=== PATIENT | female | born 1980 | race Caucasian/White ===

== ENCOUNTER 2020-10-26 18:22 | Emergency (ER) | payer BC, SELFPAY ==
[2020-10-26 18:25] VITALS: BP 186/95; PULSE 74; RESP 16; TEMP 36.4; O2SAT 98; BMI 50.5
--- NOTE | 2020-10-26 18:50 | CT_ITS ---
STUDY: CT ABDOMEN AND PELVIS WITHOUT CONTRAST REASON FOR EXAM: Female, 40 years old. RIGHT LOWER ABD PAIN RADIATING INTO FLANK TODAY RADIATION DOSAGE (If Supplied By Facility): CTDIvol = ( 33.92 ) mGy, DLP = ( 1737.49 ) mGycm TECHNIQUE: Transaxial images were obtained from the dome of the diaphragm to the symphysis pubis without oral contrast, and without intravenous contrast. Sagittal and coronal images were reconstructed. Individualized dose optimization techniques were used for this CT. COMPARISON: None. FINDINGS: The visualized lung bases are unremarkable. The visualized portions of the heart are within normal limits. Normal liver. There are surgical clips in the gallbladder fossa consistent with a prior cholecystectomy. Normal spleen. Normal pancreas. Normal bilateral adrenal glands. Normal right kidney. Normal left kidney. Normal visualized stomach. Normal small intestine. Normal colon. The appendix is visualized and appears normal. Normal abdominal aorta. Normal inferior vena cava. Normal retroperitoneum. Normal urinary bladder. Enlarged uterus with multiple myometrial masses consistent with fibroids. 2 easily identified fibroids measure 3 cm posterior left uterus and 3.3 cm anterior left uterus. Negative for other adnexal mass or free fluid of the pelvis. Normal abdominal wall. Normal osseous structures. CT/Abdomen/Pelvis without Cont IMPRESSION: Normal size of the kidneys bilaterally without hydronephrosis, renal, ureteral or bladder stones. Unremarkable nondistended urinary bladder. No acute bowel findings. Negative for obstruction, perforation or inflammatory changes. A normal appendix is identified. Unremarkable liver, spleen and pancreas status post cholecystectomy. Multiple uterine fibroids. Negative for other pelvic mass or free fluid of the pelvis. Electronically Signed: Christi Pringle MD at 20:10 EST , Service support ,
--- NOTE | 2020-10-26 18:51 | ED.DCSUM_ITS ---
- ER Visit Summary Date of Service: 10/26/20 Chief Complaint: [Abdominal pain] History of Present Illness: The patient is a 40 F [presents to the emergency department with complaint of abdominal pain that started approximately 3:30 PM. Patient states the pain initially was continuous but now seems to come and go more. Patient rates it a 5 or 6 out of 10. The pain seems to radiate to her back. She denies urinary symptoms. She denies any fever. She denies vomiting. She denies blood in her stool or black tarry stools. Patient is currently on her menstrual period. Patient denies recent illness. Patient states that the pain reminds her of when she had her gallbladder out. Her gallbladder was r esected 13 years ago. Patient does not have history of kidney stones.] Physical Examination: [HEENT-PERRLA, EOMI. Cranial nerves II through XII grossly intact. TMs clear. Mucous membranes moist. No adenopathy. Cardiovascular-regular rate and rhythm without murmur or ectopy Lungs-clear to auscultation, chest wall stable without crepitus or subcu emphysema Abdomen-normoactive bowel sounds, soft. Patient has tenderness palpation over right lower quadrant some guarding. There is no rebound, rigidity, or peritoneal signs. She has some mild CVA tenderness on the right. Extremities-intact ?4, normal range of motion, normal pulses, atraumatic] Test Results: [CBC with differential obtained showed a white of 8.7, hemoglobin 13, hematocrit 39.2, placed 297. Chemistries were unremarkable. LFTs were normal. Urinalysis showed 25-50 RBCs but no WBCs. No signs of infection. hCG was negative. CT flank obtained showed no evidence of kidney stones and showed a normal appendix. Patient was noted to have some fibroids in the uterus.] Emergency Department Course and Treatment: [Patient had an IV line established on arrival. Initially she did not want a thing for pain. The pain did return while in the department and she did receive Toradol 30 mg IV.] On repeat exam prior to receiving Toradol patient has pain in the right lower quadrant and lower pelvis region. Once again there is no rebound, rigidity, or peritoneal signs. Treatment Plan: [Patient will be given a prescription for few [place] for pain. At this point the etiology of her pain is unclear. Her work-up in the department is unremarkable. Patient advised to follow-up with her primary care physician within next 2 to 3 days. She is advised to return to the ER if worsening pain, fever, vomiting, bloody stool, or condition should worsen anyway.] Disposition: Discharged home in stable condition] Impression: [Abdominal pain-etiology uncertain] This note was generated with e[employer] dictation software. It may contain incorrect words, spelling, and punctuation that were not noted in review of the chart prior to signing ED Disposition - Plan for ED Patient: Referrals: [facility] Doctor,Out of [NON-STAFF] -
[2020-10-26 19:07] LABS: Absolute Lymphocyte Count 1.72 X10^3/uL (0.83-4.51); Absolute Neutrophil Count 6.5 X10^3/uL (2.0-7.7); Basophil# 0.03 X10^3/uL; Basophil% 0.3 % (0-1); Eosinophil# 0.03 X10^3/uL; Eosinophils% 0.3 % (0-5); Hematocrit 39.2 % (37-47); Hemoglobin 13.2 g/dL (12.0-15.0); Lymphocyte # 1.72 X10^3/ul (4.0); Lymphocyte % 19.7 % (19-41); Mean Corp Hgb Conc 33.7 g/dL (32-36); Mean Corpuscular Hgb 29.1 pg (27.0-32.0); Mean Corpuscular Volume 86.5 fL (81-99); Mean Platelet Vol. 9.5 fl (6.2-12.0); Monocyte% 4.6 % (0-10); NRBC Flagged by Analyzer 0 % (0-5); Neutrophil # 6.52 X10^3/uL (2.7-7.7); Neutrophil % 74.9 % (47-70); Platelet Count 297 K/mm3 (150-450); RBC Distribution Width CV 12.8 % (11.6-14.6); RBC Distribution Width SD 40.7 fl (35.1-43.9); Red Blood Count 4.53 M/mm3 (4.2-5.4); White Blood Count 8.7 K/mm3 (4.4-11.0)
[2020-10-26 19:19] LABS: Internal QC Validated? YES +Cl - CLEAR BKGD; Pregnancy, Serum, hCG Quali. NEGATIVE Negative
[2020-10-26 19:24] LABS: ALB/GLOB Ratio 0.9 RATIO (0.9-2.4); AST(SGOT) 14 U/L (15-37); Alanine Aminotransfer ALT/SGPT 29 U/L (13-56); Albumin, Serum 3.7 g/dL (3.2-5.0); Alkaline Phosphatase 86 U/L (45-117); Anion Gap 5 (5-15); BUN 11 mg/dL (7-18); BUN/Creat Ratio 14.7 RATIO (10-20); Calcium,Total 8.6 mg/dL (8.5-10.1); Chloride 108 mmol/L (98-107); Creatinine, Serum 0.75 mg/dL (0.55-1.02); EST Glomerular Filtration Rate 92 mL/min (>60); Est Glom Filt Rate - Afr Amer 111 mL/min (>60); Estimated Creatinine Clearance 87.82 ml/min; Globulin 3.9 g/dL (2.2-4.2); Glucose 103 mg/dL (74-106); Potassium 3.8 mmol/L (3.5-5.1); Protein, Total 7.6 g/dL (6.4-8.2); Sodium Level 139 mmol/L (136-145)
[2020-10-26] MEDS: 0.9% Normal Saline 1,000 ML 125 ML IV (19:50)
[2020-10-26 19:52] LABS: Mucous, Urine 0 SEEN /hpf (<or=2+); White Blood Cells 0 SEEN /hpf (0-5)
[2020-10-26 20:01] LABS: Color, Urine Yellow (Yellow); Glucose, Dipstick Normal (Normal); Ketone-Dipstick Negative (Negative); Leukocyte Esterase-Dipstick 25 /ul (Negative); Nitrite-Dipstick Negative (Negative); Occult Blood-Urine 250 /ul (Negative); Protein-Dipstick Negative (Negative); Urine Bilirubin Dipstick Negative (Negative); Urine Clarity Clear (Clear); Urine Urobilinogen Normal (Normal)
[2020-10-26 20:08] LABS: Bacteria 1+ /hpf (None Seen); Red Blood Cells-Urine 25-50 SEEN /hpf (0-5); Squamous Epithelial Cells - UA 0-5 SEEN /hpf (5-10)
--- NOTE | 2020-10-26 20:26 | ED.DEP ---
ED Disposition - Plan for ED Patient: Instructions: ED Abdominal Pain Unkn Cause Fem Prescriptions: Hydrocodone Bitart/Apap 5-325 [[place] 5MG-325MG] 1 tab PO Q4H PRN PRN 2 Days #10 tab PRN Reason: Pain Prescription Printed Referrals: [facility],Out of [NON-STAFF] - 1-2 Days if not improving
[2020-10-26] MEDS: Ketorolac 30 MG/ML Syringe IV (20:31)
[2020-10-26 20:53] VITALS: BP 159/86; PULSE 67; RESP 18; O2SAT 97
[2020-10-26] MEDS: HYDROcodone Bitartrate/Apap 5/325 Tablet PO (20:53)
== END 2020-10-26 21:01 | disposition home or self-care (01) ==
LOC: ED 19:14
PROVIDERS: Emergency Provider Emergency Medicine
DX: R10.31 Right lower quadrant pain (principal); Z90.49 Acquired absence of other specified parts of digestive tract
CPT/HCPCS: 74176; 80053; 81001; 84703; 85025; 96361; 96374; 99284; J7030; A4216

== ENCOUNTER → 2024-05-16 | Outpatient (CLI) | payer OTHER, SELFPAY ==
--- NOTE | 2024-05-16 12:47 | BI_ITS ---
MAMMOGRAPHY - BILATERAL SCREENING REASON FOR EXAM: Female, 44 years old. Routine annual screening examination. PERTINENT HISTORY: Non-contributory. TECHNIQUE: Digital bilateral breast lilli (3D mammographic acquisition) in the CC and MLO projections. 2-D mediolateral oblique (MLO) and craniocaudad (CC) views of both breasts were obtained. CAD: Full Field Digital Mammography with Computer Added Detection was performed. COMPARISON: Comparison is made with prior outside examination dated April 24, 2023. FINDINGS: Breast Composition: The breasts are almost entirely fatty. There are no dominant masses or suspicious calcifications. No other significant abnormalities are identified. There has been no significant change since the prior study. BI/SCRN MAMM (CAD)W/LILLI BILAT IMPRESSION: Stable bilateral screening mammogram. Yearly follow-up mammogram recommended. (A) ASSESSMENT CATEGORY: BIRADS Category 1: Negative. A letter regarding these results will be sent to the patient by the facility within 30 days. Approximately 10% of breast cancers are not detected by mammography. A normal mammogram should not delay biopsy of a clinically suspicious abnormality. [id number] Electronically Signed: Guicho Szymanski MD at 14:51 EDT ,
== END | disposition home or self-care (01) ==
LOC: OPBI 12:45
PROVIDERS: Referring Provider Registered Nurse; Visit Provider Registered Nurse
DX: Z12.31 Encounter for screening mammogram for malignant neoplasm of breast (principal)
CPT/HCPCS: 77063; 77067

== ENCOUNTER → 2024-09-21 | Outpatient (CLI) | payer OTHER, SELFPAY ==
[2024-09-21 09:35] LABS: Hematocrit 37.3 % (37-47); Hemoglobin 12.7 g/dL (12.0-15.0); Mean Corpuscular Hgb 29.5 pg (27.0-32.0); Mean Corpuscular Volume 86.5 fL (81-99); Mean Platelet Vol. 9.9 fl (6.2-12.0); Platelet Count 295 K/mm3 (150-450); RBC Distribution Width CV 13.2 % (11.6-14.6); RBC Distribution Width SD 41.2 fl (35.1-43.9); Red Blood Count 4.31 M/mm3 (4.2-5.4); White Blood Count 6.6 K/mm3 (4.4-11.0)
[2024-09-21 10:37] LABS: ALB/GLOB Ratio 1.1 RATIO (0.9-2.4); AST(SGOT) 15 U/L (15-37); Alanine Aminotransfer ALT/SGPT 22 U/L (13-56); Albumin, Serum 3.6 g/dL (3.2-5.0); Alkaline Phosphatase 53 U/L (45-117); Anion Gap 4 (5-15); BUN 16 mg/dL (7-18); BUN/Creat Ratio 28.5 RATIO (10-20); Calcium,Total 8.7 mg/dL (8.5-10.1); Chloride 106 mmol/L (98-107); Cholesterol 191 mg/dL (200); Creatinine, Serum 0.56 mg/dL (0.55-1.02); EST Glomerular Filtration Rate 125 mL/min (>60); Est Glom Filt Rate - Afr Amer 152 mL/min (>60); Globulin 3.4 g/dL (2.2-4.2); Glucose 93 mg/dL (74-106); High Density Lipoprotein 52 mg/dL; Potassium 3.8 mmol/L (3.5-5.1); Sodium Level 138 mmol/L (136-145); Triglycerides 126 mg/dL; Very Low Density Lipoprotein 25 mg/dL (5-40)
== END | disposition home or self-care (01) ==
LOC: LAB 09:00
PROVIDERS: Referring Provider Registered Nurse; Visit Provider Registered Nurse
DX: Z00.00 Encounter for general adult medical examination without abnormal findings (principal); E78.2 Mixed hyperlipidemia; E55.9 Vitamin D deficiency, unspecified; D64.9 Anemia, unspecified
CPT/HCPCS: 36415; 80053; 80061; 82306; 85027

== ENCOUNTER → 2024-10-17 | Outpatient (CLI) | payer OTHER, SELFPAY ==
--- NOTE | 2024-10-17 08:48 | ECHOCS_ITS ---
Version 2 Reason For Study: MURMUR Procedure This was a 2D Doppler, Color Flow transthoracic echocardiogram. The study was technically difficult. Contrast injection was performed. Exam performed in department. Left Ventricle Normal left ventricle. Moderate concentric left ventricular hypertrophy. Left ventricular systolic function is normal. The left ventricular ejection fraction is 60 %. No regional wall motion abnormalities noted. Right Ventricle Normal RV size. Normal systolic function. Atria Normal left atrium. Normal right atrium. Mitral Valve Normal mitral valve. Tricuspid Valve Normal tricuspid valve. Aortic Valve Trisinus/trileaflet aortic valve. Pulmonic Valve Normal pulmonic valve. Great Vessels Normal aortic root. The pulmonary artery is normal size. Normal inferior vena cava. Pericardium/Pleural No pericardial effusion. Medication 22 gauge I.V. with prn adaptor inserted into right arm. Diluted definity 3ml given slow IV push to enhance endocardial definition. MMode/2D Measurements & Calculations LVIDd: 4.3 cm IVSd: 1.4 cm LVOT diam: 2.0 cm LVIDs: 2.7 cm LVPWd: 1.5 cm FS: 36.5 % LVOT area: 3.1 cm2 Ao root diam: 3.3 cm LAV(MOD-bp): 56.3 ml LVAd ap4: 37.4 cm2 LAV(MOD-bp) Indexed: 24.2 ml/m2 LVLd ap4: 8.5 cm LAV(MOD-sp2): 49.2 ml EDV(MOD-sp4): 135.5 ml LAV(MOD-sp4): 52.3 ml EDV(sp4-el): 140.2 ml LVAs ap4: 19.9 cm2 LVLs ap4: 7.3 cm ESV(MOD-sp4): 44.8 ml ESV(sp4-el): 46.4 ml EF(MOD-sp4): 66.9 % EF(sp4-el): 66.9 % SV(MOD-sp4): 90.6 ml SV(sp4-el): 93.8 ml LA A4 area: 18.5 cm2 SI(MOD-sp4): 39.0 ml/m2 LA dimension(2D): 4.1 cm RA A4 area: 15.5 cm2 Time Measurements MV dec time: 0.20 sec Doppler Measurements & Calculations MV E max cristofer: 107.3 cm/sec Lat Peak E' Cristofer: 12.6 cm/sec Med Peak E' Cristofer: 11.2 cm/sec MV A max cristofer: 72.1 cm/sec E/E' lat: 8.5 E/E' med: 9.6 MV E/A: 1.5 MV V2 max: 113.2 cm/sec MV dec slope: 545.5 cm/sec2 Ao V2 max: 169.1 cm/sec MV max P.1 mmHg Ao max P.4 mmHg MV V2 mean: 60.4 cm/sec Ao V2 mean: 111.4 cm/sec MV mean P.8 mmHg Ao mean P.9 mmHg MV V2 VTI: 33.6 cm Ao V2 VTI: 35.3 cm MVA(VTI): 3.1 cm2 AV (velocity ratio): 0.95 TORITO(I,D): 2.9 cm2 TORITO(V,D): 2.4 cm2 LV V1 max: 135.4 cm/sec SV(LVOT): 102.4 ml PA V2 max: 113.9 cm/sec LV V1 max P.3 mmHg PA V2 mean: 72.9 cm/sec LV V1 mean P.5 mmHg LV V1 mean: 100.8 cm/sec LV V1 VTI: 33.5 cm ECHO/Echo Complete W/ Contrast Interpretation Summary Normal left ventricle. Left ventricular systolic function is normal. The left ventricular ejection fraction is 60 %. Moderate concentric left ventricular hypertrophy. Structurally normal valves. Contrast injection was performed. Ordering Physician: Marli Rojo Referring Physician: Marli Rojo Performed By: Celia Keane RCS
--- NOTE | 2024-10-17 08:49 | CDU_ITS ---
Reason For Study: Left carotid bruit Rt. Velocities/BP Lt. Velocities/BP Prox CCA 93.8/12.4 cm/sec. Prox CCA 110.9/16.3 cm/sec. Mid CCA 125.6/17.6 cm/sec. Mid CCA 97.4/21.2 cm/sec. Dist CCA 87.6/18.8 cm/sec. Dist CCA 71.6/18.8 cm/sec. Prox ICA 70.4/20 cm/sec. Prox ICA 54.4/12.6 cm/sec. Mid ICA 54.4/20 cm/sec. Mid ICA 64.2/22.5 cm/sec. Dist ICA 77.7/27.4 cm/sec. Dist ICA 72.9/26.2 cm/sec. Rt. ICA/CCA = 0.62. Lt. ICA/CCA = 0.75. Prox ECA 96.1/11.4 cm/sec. Prox ECA 94.9/13.9 cm/sec. Rt. Vert. 67.9/17.6 cm/sec. Lt. Vert. 45.4/6.9 cm/sec. Right Extracranial There is intimal thickening but no significant atherosclerotic plaque noted in the right common carotid artery. There is intimal thickening but no significant atherosclerotic plaque noted in the right internal carotid artery. There is intimal thickening but no significant atherosclerotic plaque noted in the right external carotid artery. Antegrade flow is noted in the right vertebral artery. Left Extracranial There is intimal thickening but no significant atherosclerotic plaque noted in the left common carotid artery. There is intimal thickening but no significant atherosclerotic plaque noted in the left internal carotid artery. There is intimal thickening but no significant atherosclerotic plaque noted in the left external carotid artery. Antegrade flow is noted in the left vertebral artery. Procedure Carotid Duplex [id number]. This is a Carotid Duplex examination using B-mode, color flow and specral Doppler. Exam performed in department. VL/Carotid Duplex Ultrasound Interpretation Summary Normal right extracranial internal carotid. Normal left extracranial internal carotid. Patent and antegrade vertebrals bilaterally. Ordering Physician: Marli Rojo Referring Physician: Marli Rojo Performed By: Sara Prince RVT
== END | disposition home or self-care (01) ==
LOC: CVS 08:47
PROVIDERS: PCP Registered Nurse; Referring Provider Registered Nurse; Visit Provider Registered Nurse
DX: R09.89 Other specified symptoms and signs involving the circulatory and respiratory systems (principal); R01.1 Cardiac murmur, unspecified
CPT/HCPCS: 93306; 93880; Q9957; A4216; C8929

== ENCOUNTER → 2025-05-17 | Outpatient (CLI) | payer OTHER, SELFPAY ==
--- NOTE | 2025-05-17 12:00 | BI_ITS ---
EXAM: SCRN MAMM (CAD)W/LILLI BILAT DATE: 05/17/2025 CLINICAL HISTORY: F, Age 45 y/o , SCREENING TECHNIQUE: SCRN MAMM (CAD)W/LILLI BILAT COMPARISON: Prior exam(s) dated 05/16/2024. FINDINGS: TISSUE DENSITY: There are scattered areas of fibroglandular density. Bilateral Breast Mammographic Findings: No significant masses, calcifications or other abnormalities are identified. BI/SCRN MAMM (CAD)W/LILLI BILAT IMPRESSION: There is no mammographic evidence of malignancy. OVERALL FINAL ASSESSMENT BI-RADS 1: NEGATIVE. RECOMMENDATION: Routine annual follow-up in 1 Year A letter with findings and recommendations will be mailed to the patient. Reading Location: [id number]
--- NOTE | 2025-05-17 12:00 | BI_ITS ---
EXAM: SCRN MAMM (CAD)W/LILLI BILAT DATE: 05/17/2025 CLINICAL HISTORY: F, Age 45 y/o , SCREENING TECHNIQUE: SCRN MAMM (CAD)W/LILLI BILAT COMPARISON: Prior exam(s) dated 05/16/2024. FINDINGS: TISSUE DENSITY: There are scattered areas of fibroglandular density. Bilateral Breast Mammographic Findings: No significant masses, calcifications or other abnormalities are identified. BI/SCRN MAMM (CAD)W/LILLI BILAT IMPRESSION: There is no mammographic evidence of malignancy. OVERALL FINAL ASSESSMENT BI-RADS 1: NEGATIVE. RECOMMENDATION: Routine annual follow-up in 1 Year A letter with findings and recommendations will be mailed to the patient. Reading Location: [id number]
== END | disposition home or self-care (01) ==
LOC: OPBI 11:58
PROVIDERS: PCP Registered Nurse; Referring Provider Obstetrics & Gynecology; Visit Provider Obstetrics & Gynecology
DX: Z12.31 Encounter for screening mammogram for malignant neoplasm of breast (principal)
CPT/HCPCS: 77063; 77067

== ENCOUNTER → 2025-07-19 | Outpatient (CLI) | payer OTHER, SELFPAY ==
[2025-07-19 11:14] LABS: Hematocrit 38.2 % (37-47); Hemoglobin 13.1 g/dL (12.0-15.0); Mean Corp Hgb Conc 34.3 g/dL (32-36); Mean Corpuscular Volume 85.8 fL (81-99); Mean Platelet Vol. 10.0 fl (6.2-12.0); Platelet Count 303 K/mm3 (150-450); RBC Distribution Width CV 13.0 % (11.6-14.6); RBC Distribution Width SD 40.4 fl (35.1-43.9); Red Blood Count 4.45 M/mm3 (4.2-5.4); White Blood Count 5.6 K/mm3 (4.4-11.0)
[2025-07-19 11:56] LABS: AST(SGOT) 22 U/L (<=31); Alanine Aminotransfer ALT/SGPT 19 U/L (<=34); Albumin, Serum 4.3 g/dL (3.5-5.0); Alkaline Phosphatase 54 U/L (35-104); Anion Gap 11 (5-15); BUN 13 mg/dL (4-19); BUN/Creat Ratio 24.3 RATIO (10-20); Calcium,Total 9.0 mg/dL (7.6-11.0); Carbon Dioxide 22.9 mmol/L (21.0-32.0); Chloride 105 mmol/L (98-108); Cholesterol 212 mg/dL (<=200); Globulin 3.1 g/dL (2.2-4.2); Glucose 92 mg/dL (70-99); Low Density Lipoprotein Calc. 143 mg/dL; Potassium 3.8 mmol/L (3.3-5.1); Triglycerides 94 mg/dL; Very Low Density Lipoprotein 19 mg/dL (5-40); Vitamin D,25 Hydroxy 43.0 ng/mL (30-100); cholesterol:hdl ratio screen 4.27
--- OUTSIDE RECORDS SUMMARY | 2025-07-19 13:48 | XMS RPT_ITS | CCD ---
Author Organization [facility] CliniSyms Care Team Providers Care Voip Network Engineer Name Role Phone JEFF PRETTYN-LEADLIGHTER, SOWMYA Primary Care Physician REYMUNDO RUSSO Referring Unavailable JEFF SWANN-LEADLIGHTER, SOWMYA Attending Varshavakristi AGUILAR APRN-LEADLIGHTER, SOWMYA Primary Care Antonia AGUILAR APRN-LEADLIGHTER, SOWMYA Attending Antonia AGUILAR APRN-LEADLIGHTER, SOWMYA Primary Care Unavai pat AGUILAR 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, SOWMYA Attending Antonia AGUILAR APRN-LEADLIGHTER, SOWMYA Primary Care Antonia AGUILAR APRN-LEADLIGHTER, SOWMYA Attending Varshavakristi PINO APRN-STUART, MARLI Londono Primary Care Un available Unavailable Primary Care Provider Keily Pino NP-C, Marli Primary Care Provider [phone] Rebecca STAUFFER, Dr. Girish Uribe Attending Provider [phone] Dr. Girish Fernandez MD Referring Provider Alia BIT TAPPER, Marli Referring Unavailabl e Care Physician, No Primary Primary Care Unava ilable Alia BIT TAPPER, Marli Attending Unavailzoraida e Alia BIT TAPPER, [place] Primary Care Unavailabl e Alia VELIZ, Marli Attending Unavailzoraida e Alia VELIZ, [place] Primary Care Unavailabl Richard Asencio Attending Unavailable Alia VELIZ, Marli Referring Unavailzoraida e Alia BIT TAPPER, Marli Primary Care UnavailDiego Neff Attending Unavailable Alia BIT TAPPER, Marli Referring Unavailzoraida e Alia BIT TAPPER, [place] Primary Care Unavailzoraida e Alia BIT TAPPER, Marli Attending Marli Donovan NP Primary Care Girish Phillips Attending Unavailable Girish Fernandez Referring Unavailable Allergies Allergy Classification Reported Allergen(s) Allergy Type Date of Onset Reaction(s) Facility (11 sources) seasonal enviromental Allergy to substance Sneezing (finding) [facility] NEGATED: Highlighted row has been ruled out! (1 source) Drug allergy [facility] NEGATED: Highlighted row has been ruled out! (1 source) Drug allergy [facility] NEGATED: Highlighted row has been ruled out! (1 source) Drug allergy [facility] NEGATED: Highlighted row has been ruled out! (1 source) Drug allergy [facility] NEGATED: Highlighted row has been ruled out! (1 source) Drug allergy [facility] NEGATED: Highlighted row has been ruled out! (1 source) Drug allergy [facility] Medications Current Medications Medication Drug Class(es) Dates Sig (Normalized) Sig (Original) [id number] 200 actuat albuterol 0.09 mg/actuat metered dose inhaler (1 source) beta2-Adrenergic Agonist Start: 10-22-2023 take 2 puff(s) by inhalation every six hours as needed albuterol HFA (PROAIR HFA) 90 mcg/actuation inhaler Inhale 2 Puffs as instructed every 6 hours as needed. 1 Each 10/22/2023 Active benzonatate 100 mg oral capsule (1 source) Non-narcotic Antitussive Start: 10-22-2023 take 2 capsules by mouth every eight hours as needed benzonatate (TESSALON PERLES) 100 mg capsule Take 2 capsules by mouth three times a day as needed. 30 capsule 10/22/2023 Active cetirizine hydrochloride 10 mg oral tablet (12 sources) Histamine-1 Receptor Antagonist Start: 04-04-2022 End: 06-10-2023 cetirizine 10 mg oral tablet Dose : 10 mg = 1 tab(s), Oral, qDay, # 90 tab(s), 1 Refill(s), Pharmacy: [facility], 163.5, cm, 12/12/22 9:32:00 EST, Height, kg, 12/12/22 9:32:00 EST, Dosing Weight Start Date: 12/12/22 Stop Date: 06/10/23 Status: Ordered Start: 03-29-2021 End: 03-24-2022 cetirizine 10 mg oral tablet Dose : 10 mg = 1 tab(s), Oral, qDay, # 30 tab(s), 0 Refill(s) Start Date: 12/26/21 Status: Ordered cholecalciferol 0.125 mg oral tablet (1 source) Vitamin D Start: 01-14-2022 cholecalcifero l (VITAMIN D-3) 5,000 unit tab 5,000 Units. 01/14/2022 Active citalopram 40 mg oral tablet (7 sources) Serotonin Reuptake Inhibitor Start: 04-11-2022 End: 07-06-2023 citalopram 40 mg oral tablet Dose : 40 mg = 1 tab(s), Oral, qDay, # 90 tab(s), 1 Refill(s), Pharmacy: [facility], 163.5, cm, 12/12/22 9:32:00 EST, Height, kg, 12/12/22 9:32:00 EST, Dosing Weight Start Date: 12/12/22 Stop Date: 06/10/23 Status: Ordered take 2 tablets by mouth once cruz ly citalopram hydrobromide (CELEXA) 10 mg tablet Take 20 mg by mouth once daily. Active estradiol 2 mg oral tablet (3 sources) Estrogen Start: 01-13-2022 End: 01-27-2022 estradiol 2 mg oral tablet Dose : 2 mg = 1 tab(s), Oral, BID, # 14 tab(s), 1 Refill(s), Pharmacy: [facility], 165.2, cm, 12/26/21 10:11:00 EST, Height, kg, 12/26/21 10:11:00 EST, Dosing Weight Start Date: 01/13/22 Stop Date: 01/27/22 Status: Ordered Start: 09-05-2021 End: 09-26-2021 estradiol 1 mg oral tablet D ose : 1 mg = 1 tab(s), Oral, qDay, Take two tabs daily for 7 days then one tab daily for 7 days, # 21 tab(s), 0 Refill(s), Pharmacy: [facility], 162.56, cm, 07/08/21 14:11:00 EDT, Height, kg, 08/29/21 9:50:00 EDT, Dosing Weight Start Date: 09/05/21 Stop Date: 09/26/21 Status: Ordered fenofibrate 145 mg oral tablet (4 sources) Peroxisome Proliferator Receptor alpha Agonist Start: 07-11-2022 End: 06-10-2023 fenofibrate 145 mg oral tablet Dose : 145 mg = 1 tab(s), Oral, qDay, # 90 tab(s), 1 Refill(s), Pharmacy: [facility], 163.5, cm, 12/12/22 9:32:00 EST, Height, kg, 12/12/22 9:32:00 EST, Dosing Weight Start Date: 12/12/22 Stop Date: 06/10/23 Status: Ordered Fenofibrate 120 mg tab Take 145 mg by mouth once daily. Active fluticasone propionate 0.05 mg/actuat metered dose nasal spray (1 source) Corticosteroid Start: 02-08-2021 take 2 spray(s) by mouth once daily fluticasone (FLONASE) 50 mcg/actuation nasal spray Indications: Sinus pressure Use 2 Sprays in each nostril once daily. Rinse mouth after use. 1 Bottle 02/08/2021 Active ibuprofen 200 mg oral tablet (5 sources) Nonsteroidal Anti-inflammatory Drug Start: 02-08-2021 ibuprofen 200 mg oral tablet Dose : 400 mg = 2 tab(s), Oral, q6hr, PRN pain or fever, 0 Refill(s) Start Date: 02/08/21 Status: Ordered rosuvastatin calcium 20 mg oral tablet (12 sources) HMG-CoA Reductase Inhibitor Start: 09-06-2021 End: 06-10-2023 rosuvastatin 20 mg oral tablet Dose : 20 mg = 1 tab(s), Oral, qDay, # 90 tab(s), 1 Refill(s), Pharmacy: [facility], 163.5, cm, 12/12/22 9:32:00 EST, Height, kg, 12/12/22 9:32:00 EST, Dosing Weight Start Date: 12/12/22 Stop Date: 06/10/23 Status: Ordered take 2 tablets by mouth once cruz ly rosuvastatin (CRESTOR) 10 mg tablet Take 20 mg by mouth once daily. Active Vitamin D3 (7 sources) Start: 01-14-2022 take 1 dose by mouth once daily Vitamin D3 Dose : 5,000 unit(s) =, Oral, Daily, 0 Refill(s) Start Date: 01/14/22 Status: Ordered Start: 01-14-2022 Vitamin D3 Dos e : 2,000 unit(s) = 1 tab(s), Oral, Daily, 0 Refill(s) Start Date: 01/14/22 Status: Ordered Completed/Discontinued Medications Medication Drug Class(es) Dates Sig (Normalized) Sig (Original) acetaminophen 325 mg / HYDROcodone bitartrate 5 mg oral tablet (1 source) Opioid Agonist Start: 10-26-2020 End: 10-28-2020 Hydrocodone-Acetami nophen 1 TABLET tablet Discontinued 1 {tbl} PO EVERY 4 HOURS NEEDED as needed for Pain 10 2 0 October 26, 2020 October 27, 2020 1:00am October 28, 2020 1:02am Abdominal pain Unspecified abdominal pain Problems Active Problems Problem Classification Problem Date Documented Da te Episodic/Chronic Anxiety disorders (6 sources) Generalized anxiety disorder 2022 Chronic Chronic obstructive pulmonary disease and bronchiectasis (2 sources) Bronchitis, not specified as acute or chronic; Translations: [Bronchitis] Onset: 10-22-2023 10-22-2023 Episodic Deficiency and other anemia (6 sources) Anemia 04-05-2022 Episodic Deficiency and other anemia (1 source) Anemia, unspecified; Translations: [Anemia, unspecified] Onset: 07-13-2025 Episodic Disorders of lipid metabolism (13 sources) Hyperlipidemia; Translations: [Mixed hyperlipidemia] Onset: 07-13-2025 06-09-2021 Chronic Nonmalignant breast conditions (11 sources) Breast lump 02-08-2021 Episodic Comment on above: Right-benign Nutritional deficiencies (7 sources) Vitamin D deficiency; Translations: [Vitamin D deficiency, unspecified] Onset: 07-13-2025 04-05-2022 Chronic Other female genital disorders (11 sources) Abnormal uterine bleeding 07-04-2021 Chronic Other nutritional; endocrine; and metabolic disorders (11 sources) Body mass index 40+ - severely obese 06-09-2021 Chronic Other nutritional; endocrine; and metabolic disorders (11 sources) Obesity 06-09-2021 Chronic Other screening for suspected conditions (not mental disorders or infectious disease) (2 sources) Encounter for screening for diabetes mellitus; Translations: [Encounter for screening mammogram for malignant neoplasm of breast] Onset: 05-22-2025 Episodic Other upper respiratory disease (6 sources) Seasonal allergy 04-05-2022 Chronic Residual codes; unclassified (11 sources) History of laparoscopy 07-08-2021 Episodic Residual codes; unclassified (2 sources) Screening - NAD 12-12-2022 Episodic Unclassified (6 sources) History of vaginal hysterectomy 01-16-2022 Unclassified (6 sources) Never smoked tobacco 2022 Unclassified (9 sources) Patient encounter status 2022 Unclassified (2 sources) History of clinical finding in subject 12-12-2022 Past or Other Problems Problem Classification Problem Date Documented Da te Episodic/Chronic Biliary tract disease (1 source) Acute cholecystitis; Translations: [Acute cholecystitis] Onset: 02-03-2006 Resolved: 10-17-2008 10-17-2008 Episodic Hypertension complicating ; childbirth and the puerperium (1 source) Transient hypertension of ; Translations: [Gestational [-induced] hypertension without significant proteinuria, unspecified trimester] Onset: 12-04-2008 Resolved: 06-13-2009 06-13-2009 Episodic Other circulatory disease (1 source) Other specified symptoms and signs involving the circulatory and respiratory systems; Translations: [Other specified symptoms and signs involving the circulatory and respiratory systems] Onset: 11-15-2024 Episodic Other and delivery including normal (1 source) Normal in primigravida; Translations: [Encounter for supervision of normal first , unspecified trimester] Onset: 09-19-2008 Resolved: 02-01-2009 02-01-2009 Episodic Ovarian cyst (12 sources) Cyst of ovary; Translations: [Unspecified ovarian cyst, unspecified side] Onset: 12-04-2008 Resolved: 06-13-2009 07-04-2021 Episodic Results Test Name Value Interpretation Reference Range Facility Breast imaging reportOrdered By: Shi Lundy on 05-17-2025 Study report [facility] Imaging Services [address] [place] [address] SCRN MAMM (CAD)W/MIGUEL BILAT MR#: [id number] Acct: [id number] Name: RUBA BUSTAMANTE Rep #: [id number] : 1980 F 45 From: Juliette Lundy MD PCP: LUCIA UrbinaC Status: RE G CLI Study:SCRN MAMM (CAD)W/MIGUEL BILAT Date of Exa m: 05/17/25 Exam# [id number] Ordering Dr: Rodri Fernandez MD EXAM: SCRN MAMM (CAD)W/MIGUEL BILAT DATE: 05/17/2025 CLINICAL HISTORY: F, Age 45 y/o , SCREENING TECHNIQUE: SCRN MAMM (CAD)W/MIGUEL BILAT COMPARISON: Prior exam(s) dated 05/16/2024. FINDINGS: TISSUE DENSITY: There are scattered areas of fibroglandular density. Bilateral Breast Mammographic Findings: No significant masses, calcifications or other abnormalities are identified. BI/SCRN MAMM (CAD)W/MIGUEL BILAT IMPRESSION: There is no mammographic evidence of malignancy. OVERALL FINAL ASSESSMENT BI-RADS 1: NEGATIVE. RECOMMENDATION: Routine annual follow-up in 1 Year A letter with findings and recommendations will be mailed to the patient. Reading Location: [facility] CC: BIT TAPPERNitoC Marli Pino; Dr. Girish Fernandez MD ~ Molasses Coloring Operator: Signed [facility] SCRN MAMM (CAD)W/MIGUEL BILATo n 05-17-2025 SCRN MAMM (CAD)W/MIGUEL BILAT [facility] Imaging Services [address] [place] [id number] SCRN MAMM (CAD)W/MIGUEL BILAT MR#: [id number] Acct: [id number] Name: RUBA BUSTAMANTE Rep #: [id number] : 1980 F 45 From: Shi Lundy MD PCP: MANUEL Urbina Status: REG CLI Study: SCRN MAMM (CAD)W/MIGUEL BILAT Date of Exam: 05/02 04/26 Exam# [id number] Ordering Dr: Girish Fernandez MD EXAM: SCRN MAMM (CAD)W/MIGUEL BILAT DATE: 05/17/2025 CLINICAL HISTORY: F, Age 45 y/o , SCREENING TECHNIQUE: SCRN MAMM (CAD)W/MIGUEL BILAT COMPARISON: Prior exam(s) dated 05/16/2024. FINDINGS: TISSUE DENSITY: There are scattered areas of fibroglandular density. Bilateral Breast Mammographic Findings: No significant masses, calcifications or other abnormalities are identified. BI/SCRN MAMM (CAD)W/MIGUEL BILAT IMPRESSION: There is no mammographic evidence of malignancy. OVERALL FINAL ASSESSMENT BI-RADS 1: NEGATIVE. RECOMMENDATION: Routine annual follow-up in 1 Year A letter with findings and recommendations will be mailed to the patient. Reading Location: [facility] CC: BIT TAPPER-Mikael Pino; Dr. Girish Fernandez MD Molasses Coloring Operator: Signed Normal [facility] Carotid Duplex Ultrasoundon 10-17-2024 Carotid Duplex Ultrasound [facility] Cardiovascular Services [address] [place] [address] Carotid Duplex Ultrasound 10/17/24 0850 MR#: [id number] Acct: [id number] Name: RUBA BUSTAMANTE Rep #: [id number] : 1980 44 From: Diego Gleason MD Attending Dr: Marli Pino NP-C Status: R EG CLI Ordering Dr: Marli Pino NP BIT TAPPERJalyn Date: 10/17 Location: [facility] Sex: F C Admitted: Reason For Study: Left carotid bruit Rt. Velocities/BP Lt. Velocities/BP Prox CCA 93.8/12.4 cm/sec. Prox CCA 110.9/16.3 cm/sec. Mid CCA 125.6/17.6 cm/sec. Mid CCA 97.4/21.2 cm/sec. Dist CCA 87.6/18.8 cm/sec. Dist CCA 71.6/18.8 cm/sec. Prox ICA 70.4/20 cm/sec. Prox ICA 54.4/12.6 cm/sec. Mid ICA 54.4/20 cm/sec. Mid ICA 64.2/22.5 cm/sec. Dist ICA 77.7/27.4 cm/sec. Dist ICA 72.9/26.2 cm/sec. Rt. ICA/CCA = 0.62. Lt. ICA/CCA = 0.75. Prox ECA 96.1/11.4 cm/sec. Prox ECA 94.9/13.9 cm/sec. Rt. Vert. 67.9/17.6 cm/sec. Lt. Vert. 45.4/6.9 cm/sec. Right Extracranial There is intimal thickening but no significant atherosclerotic plaque noted in the right common carotid artery. There is intimal thickening but no significant atherosclerotic plaque noted in the right internal carotid artery. There is intimal thickening but no significant atherosclerotic plaque noted in the right external carotid artery. Antegrade flow is noted in the right vertebral artery. Left Extracranial There is intimal thickening but no significant atherosclerotic plaque noted in the left common carotid artery. There is intimal thickening but no significant atherosclerotic plaque noted in the left internal carotid artery. There is intimal thickening but no significant atherosclerotic plaque noted in the left external carotid artery. Antegrade flow is noted in the left vertebral artery. Procedure Carotid Duplex [id number]. This is a Carotid Duplex examination using B-mode, color flow and specral Doppler. Exam performed in department. VL/Carotid Duplex Ultrasound Interpretation Summary Normal right extracranial internal carotid. Normal left extracranial internal carotid. Patent and antegrade vertebrals bilaterally. Ordering Physician: Marli Pino Referring Physician: Marli Pino Performed By: Sara Prince RVT 10/18/241656 Date Diego Gleason MD CC: BIT TAPPER-C Marli Pino Date Dictated: 10/17/2450 Date Transcribed: 10/18/241656 Molasses Coloring Operator: Signed Normal [facility] Echo Complete W/ Contraston 10-17-2024 Echo Complete W/ Contrast [facility] Cardiovascular Services [address] [place] [address] Echo Complete W/ Contrast 10/17/24911 MR#: [id number] Acct: [id number] Name: RUBA BUSTAMANTE Rep #: [id number] : 1980 44 From: Richard Barron MD Attending Dr: MANUEL Urbina Status: R EG CLI Ordering Dr: Marli Pino NP BIT TAPPER-C Date: 10/17 Location: [facility] Sex: F C Admitted: Version 2 Reason For Study: MURMUR Procedure This was a 2D Doppler, Color Flow transthoracic echocardiogram. The study was technically difficult. Contrast injection was performed. Exam performed in department. Left Ventricle Normal left ventricle. Moderate concentric left ventricular hypertrophy. Left ventricular systolic function is normal. The left ventricular ejection fraction is 60 %. No regional wall motion abnormalities noted. Right Ventricle Normal RV size. Normal systolic function. Atria Normal left atrium. Normal right atrium. Mitral Valve Normal mitral valve. Tricuspid Valve Normal tricuspid valve. Aortic Valve Trisinus/trileaflet aortic valve. Pulmonic Valve Normal pulmonic valve. Great Vessels Normal aortic root. The pulmonary artery is normal size. Normal inferior vena cava. Pericardium/Pleural No pericardial effusion. Medication 22 gauge I.V. with prn adaptor inserted into right arm. Diluted definity 3ml given slow IV push to enhance endocardial definition. MMode/2D Measurements Calculations LVIDd: 4.3 cm IVSd: 1.4 cm LVOT diam: 2.0 cm LVIDs: 2.7 cm LVPWd: 1.5 cm FS: 36.5 % LVOT area: 3.1 cm2 Ao root diam: 3.3 cm LAV(MOD-bp): 56.3 ml LVAd ap4: 37.4 cm2 LAV(MOD-bp) Indexed: 24.2 ml/m2 LVLd ap4: 8.5 cm LAV(MOD-sp2): 49.2 ml EDV(MOD-sp4): 135.5 ml LAV(MOD-sp4): 52.3 ml EDV(sp4-el): 140.2 ml LVAs ap4: 19.9 cm2 LVLs ap4: 7.3 cm ESV(MOD-sp4): 44.8 ml ESV(sp4-el): 46.4 ml EF(MOD-sp4): 66.9 % EF(sp4-el): 66.9 % SV(MOD-sp4): 90.6 ml SV(sp4-el): 93.8 ml LA A4 area: 18.5 cm2 SI(MOD-sp4): 39.0 ml/m2 LA dimension(2D): 4.1 cm RA A4 area: 15.5 cm2 Time Measurements MV dec time: 0.20 sec Doppler Measurements Calculations MV E max cristofer: 107.3 cm/sec Lat Peak E' Cristofer: 12.6 cm/sec Med Peak E' Cristofer: 11.2 cm/sec MV A max cristofer: 72.1 cm/sec E/E' lat: 8.5 E/E' med: 9.6 MV E/A: 1.5 MV V2 max: 113.2 cm/sec MV dec slope: 545.5 cm/sec2 Ao V2 max: 169.1 cm/sec MV max P.1 mmHg Ao max P.4 mmHg MV V2 mean: 60.4 cm/sec Ao V2 mean: 111.4 cm/sec MV mean P.8 mmHg Ao mean P.9 mmHg MV V2 VTI: 33.6 cm Ao V2 VTI: 35.3 cm MVA(VTI): 3.1 cm2 AV (velocity ratio): 0.95 TORITO(I,D): 2.9 cm2 TORITO(V,D): 2.4 cm2 LV V1 max: 135.4 cm/sec SV(LVOT): 102.4 ml PA V2 max: 113.9 cm/sec LV V1 max P.3 mmHg PA V2 mean: 72.9 cm/sec LV V1 mean P.5 mmHg LV V1 mean: 100.8 cm/sec LV V1 VTI: 33.5 cm ECHO/Echo Complete W/ Contrast Interpretation Summary Normal left ventricle. Left ventricular systolic function is normal. The left ventricular ejection fraction is 60 %. Moderate concentric left ventricular hypertrophy. Structurally normal valves. Contrast injection was performed. Ordering Physician: Marli Pino Referring Physician: Marli Pino Performed By: Celia Keane RCS 10/17/24 1343 Date Richard Barron MD CC: BIT TAPPER-C Marli Pino Date Dictated: 10/17/24911 Date Transcribed: 10/17/24 134 Molasses Coloring Operator: Signed Normal [facility] CBC-Complete Blood Cnt No Di ffon 09-21-2024 Erythrocyte distribution width (RBC) [Ratio] 13.2 % Normal 11.6-14.6 [facility] Comment on above: Performed By: #### L 100.0500, L500.4050, L500.4100, L506.1000 #### [facility] Laboratory [address] [place], [place], [id number] [phone] Hematocrit (Bld) [Volume fraction] 37.3 % Normal 37-47 [facility] Comment on above: Performed By: #### L 100.0500, L500.4050, L500.4100, L506.1000 #### [facility] Laboratory [address] [place], [address] Hemoglobin (Bld) [Mass/Vol] 12.7 g/dL Normal 12.0-15.0 [facility] Comment on above: Performed By: #### L 100.0500, L500.4050, L500.4100, L506.1000 #### [facility] [address] [place], [address] MCH (RBC) [Entitic mass] 29.5 pg Normal 27.0-32.0 [facility] Comment on above: Performed By: #### L 100.0500, L500.4050, L500.4100, L506.1000 #### [facility] [address] [place], [address] MCHC (RBC) [Mass/Vol] 34.0 g/dL Normal 32-36 [facility] Comment on above: Performed By: #### L 100.0500, L500.4050, L500.4100, L506.1000 #### [facility] Laboratory [address] [place], [address] MCV (RBC) [Entitic vol] 86.5 fL Normal 81-99 [facility] Comment on above: Performed By: #### L 100.0500, L500.4050, L500.4100, L506.1000 #### [facility] [address] [place], [address] Platelet mean volume (Bld) [Entitic vol] 9.9 fL Normal 6.2-12.0 [facility] Comment on above: Performed By: #### L 100.0500, L500.4050, L500.4100, L506.1000 #### [facility] Laboratory [address] [place], [address] Platelets (Bld) [#/Vol] 295 10*3/uL Normal 150-450 [facility] Comment on above: Performed By: #### L 100.0500, L500.4050, L500.4100, L506.1000 #### [facility] Laboratory [address] [place], [address] RBC (Bld) [#/Vol] 4.31 10*6/uL Normal 4.2-5.4 [facility] Comment on above: Performed By: #### L 100.0500, L500.4050, L500.4100, L506.1000 #### [facility] Laboratory [address] [place], [address] RDW SD 41.2 fl Normal 35.1-43.9 [facility] Comment on above: Performed By: #### L 100.0500, L500.4050, L500.4100, L506.1000 #### [facility] Laboratory [address] [place], [address] WBC (Bld) [#/Vol] 6.6 10*3/uL Normal 4.4-11.0 [facility] Comment on above: Performed By: #### L 100.0500, L500.4050, L500.4100, L506.1000 #### [facility] [address] [place], [address] [facility] 09-21-2024 Albumin [Mass/Vol] 3.6 g/dL Normal 3.2-5.0 [facility] Comment on above: Performed By: #### L 100.0500, L500.4050, L500.4100, L506.1000 #### [facility] [address] [place], [address] Albumin/Globulin [Mass ratio] 1.1 {ratio} Normal 0.9-2.4 [facility] Comment on above: Performed By: #### L 100.0500, L500.4050, L500.4100, L506.1000 #### [facility] [address] [place], [address] ALK P 53 U/L Normal 45-117 [facility] Comment on above: Performed By: #### L 100.0500, L500.4050, L500.4100, L506.1000 #### [facility] [address] [place], [address] ALT [Catalytic activity/Vol] 22 U/L Normal 13-56 [facility] Comment on above: Performed By: #### L 100.0500, L500.4050, L500.4100, L506.1000 #### [facility] [address] [place], [address] AST [Catalytic activity/Vol] 15 U/L Normal 15-37 [facility] Comment on above: Performed By: #### L 100.0500, L500.4050, L500.4100, L506.1000 #### [facility] Laboratory [address] [place], [address] Bilirubin [Mass/Vol] 0.40 mg/dL Normal 0.20-1.00 [facility] Comment on above: Result Comment: For patients on eltrombopag therapy, use of Dimension [place] TBIL is not recommended. Performed By: #### L 100.0500, L500.4050, L500.4100, L506.1000 #### [facility] Laboratory [address] [place], [address] BUN/CRE 28.5 RATIO High 10-20 [facility] Comment on above: Performed By: #### L 100.0500, L500.4050, L500.4100, L506.1000 #### [facility] [facility] [address] [place], [address] CA,Total 8.7 mg/dL Normal 8.5-10.1 [facility] Comment on above: Performed By: #### L 100.0500, L500.4050, L500.4100, L506.1000 #### [facility] [address] [place], [address] Chloride [Moles/Vol] 106 mmol/L Normal 98-107 [facility] Comment on above: Performed By: #### L 100.0500, L500.4050, L500.4100, L506.1000 #### [facility] [address] [place], [address] CO2 [Moles/Vol] 28.0 mmol/L Normal 21.0-32.0 [facility] Comment on above: Performed By: #### L 100.0500, L500.4050, L500.4100, L506.1000 #### [facility] [address] [place], [address] Creatinine [Mass/Vol] 0.56 mg/dL Normal 0.55-1.02 [facility] Comment on above: Result Comment: The validity of the calculated GFR GFRAA in patients over 70 years has not been determined. Clinical correlation is essential. Performed By: #### L 100.0500, L500.4050, L500.4100, L506.1000 #### [facility] [address] [place], [address] EST GFR - AA 152 mL/min Normal >60 [facility] Comment on above: Result Comment: Afri can Filipino GFR Calc Performed By: #### L 100.0500, L500.4050, L500.4100, L506.1000 #### [facility] [address] [place], [address] GAP 4 Low 5-15 [facility] Comment on above: Performed By: #### L 100.0500, L500.4050, L500.4100, L506.1000 #### [facility] [address] [place], [address] GFR/1.73 sq M.predicted among non-blacks MDRD (S/P/Bld) [Vol rate/Area] 125 mL/min/{1.73_m2} Normal >60 [facility] Comment on above: Result Comment: Non- GFR Calc Performed By: #### L 100.0500, L500.4050, L500.4100, L506.1000 #### [facility] [address] [place], [address] Globulin (S) [Mass/Vol] 3.4 g/dL Normal 2.2-4.2 [facility] Comment on above: Performed By: #### L 100.0500, L500.4050, L500.4100, L506.1000 #### [facility] [address] [place], [address] Glucose [Mass/Vol] 93 mg/dL Normal 74-106 [facility] Comment on above: Performed By: #### L 100.0500, L500.4050, L500.4100, L506.1000 #### [facility] [address] [place], [address] Potassium [Moles/Vol] 3.8 mmol/L Normal 3.5-5.1 [facility] Comment on above: Performed By: #### L 100.0500, L500.4050, L500.4100, L506.1000 #### [facility] [address] [place], [address] Sodium [Moles/Vol] 138 mmol/L Normal 136-145 [facility] Comment on above: Performed By: #### L 100.0500, L500.4050, L500.4100, L506.1000 #### [facility] [address] [place], [address] T PROT 7.0 g/dL Normal 6.4-8.2 [facility] Comment on above: Performed By: #### L 100.0500, L500.4050, L500.4100, L506.1000 #### [facility] [address] [place], [address] Urea nitrogen [Mass/Vol] 16 mg/dL Normal 7-18 [facility] Comment on above: Performed By: #### L 100.0500, L500.4050, L500.4100, L506.1000 #### [facility] [address] [place], [address] Lipid Profileon 09-21-2024 Cholesterol [Mass/Vol] 191 mg/dL Normal 200 [facility] Comment on above: Result Comment: <200 mg/dL Desirable 200-240 mg/dL Borderline >240 mg/dL High Risk Performed By: #### L 100.0500, L500.4050, L500.4100, L506.1000 #### [facility] [address] [place], [address] Cholesterol in HDL [Mass/Vol] 52 mg/dL Normal [facility] Comment on above: Result Comment: The drugs N-Acetylcysteine and Metamizole may falsely depress this assay. Reference Range HDL <40 mg/dL Low HDL Cholesterol HDL >or= 60 mg/dL High HDL Cholesterol Performed By: #### L 100.0500, L500.4050, L500.4100, L506.1000 #### [facility] [address] [place], [address] Cholesterol in LDL [Mass/Vol] 114 mg/dL Normal 0-130 [facility] Comment on above: Performed By: #### L 100.0500, L500.4050, L500.4100, L506.1000 #### [facility] [address] [place], [address] Cholesterol in VLDL [Mass/Vol] 25 mg/dL Normal 5-40 [facility] Comment on above: Performed By: #### L 100.0500, L500.4050, L500.4100, L506.1000 #### [facility] [address] [place], [address] Triglyceride [Mass/Vol] 126 mg/dL Normal [facility] Comment on above: Result Comment: The drugs N-Acetylcysteine and Metamizole may falsely depress this assay. Serum Triglycerides Reference Interval Normal <150 mg/dL Borderline high 150 - 199 mg/dL High 200 - 499 mg/dL Very High > or = 500 mg/dL Performed By: #### L 100.0500, L500.4050, L500.4100, L506.1000 #### [facility] [address] [place], [address] Vitamin D,25 Hydroxyon 09-21 Vitamin D 25-OH 36.0 ng/mL Normal [facility] Comment on above: Result Comment: Evelyn min D 25([place]) Status Range Deficiency <20 ng/mL (50nmol/L) Insufficiency 20 - 30 ng/mL (50 - 75 nmol/L) Sufficiency 30 - 100 ng/mL (75 - 250 nmol/L) Toxicity >100 ng/mL (>250 nmol/L) Performed By: #### L 100.0500, L500.4050, L500.4100, L506.1000 #### [facility] [address] [place], [address] .GFRon 11-13-2023 GFR 145 ml/min/1.73sqm Normal [facility] ([place]) Comment on above: Result Comment: GFR Population mean for , Non- Americans Ages 20-29 = 116 mL/min/1.73 sq.m. Ages 30-39 = 107 mL/min/1.73 sq.m. Ages 40-49 = 99 mL/min/1.73 sq.m. Ages 50-59 = 93 mL/min/1.73 sq.m. Ages 60-69 = 85 mL/min/1.73 sq.m. Ages 70+ = 75 mL/min/1.73 sq.m. Chronic Kidney Disease: Less than 60 mL/min/1.73 square meters End Stage Renal Disease: Less than 15 mL/min/1.73 square meters Performed By: #### L IPID, VIDH, CMP, TSH, GFR #### Aze[facility] [address] [address] GFR Non- 119 ml/min/1.73sqm Normal [facility] ([place] Comment on above: Result Comment: GFR Population mean for , Non- Americans Ages 20-29 = 116 mL/min/1.73 sq.m. Ages 30-39 = 107 mL/min/1.73 sq.m. Ages 40-49 = 99 mL/min/1.73 sq.m. Ages 50-59 = 93 mL/min/1.73 sq.m. Ages 60-69 = 85 mL/min/1.73 sq.m. Ages 70+ = 75 mL/min/1.73 sq.m. Chronic Kidney Disease: Less than 60 mL/min/1.73 square meters End Stage Renal Disease: Less than 15 mL/min/1.73 square meters Performed By: #### L IPID, VIDH, CMP, TSH, GFR #### [address] [address] CMPon 11-13-2023 Albumin Level 3.5 G/dL Normal 3.5-5.0 [facility] ([place] Comment on above: Performed By: #### C MP, LIPID, GFR #### [address] [address] Albumin/Globulin [Mass ratio] 1.0 {ratio} Low 1.1-2.5 [facility] ([place] Comment on above: Performed By: #### C MP, LIPID, GFR #### [address] [address] ALP [Catalytic activity/Vol] 58 U/L Normal 40-135 [facility] ([place] Comment on above: Performed By: #### C MP, LIPID, GFR #### [address] [address] ALT [Catalytic activity/Vol] 27 U/L Normal 14-59 [facility] ([place] Comment on above: Performed By: #### C MP, LIPID, GFR #### [address] [address] AST [Catalytic activity/Vol] 20 U/L Normal 10-40 [facility] ([place] Comment on above: Performed By: #### C MP, LIPID, GFR #### [address] [address] Bili Total 0.3 mg/dL Normal 0.2-1.0 [facility] ([place] Comment on above: Result Comment: Use of this assay is not recommended for patients undergoing treatment with eltrombopag due to the potential for falsely elevated results. Performed By: #### C MP, LIPID, GFR #### [address] [address] BUN/Creatinine Ratio 20 ratio Normal 7-27 [facility] ([place] Comment on above: Performed By: #### C MP, LIPID, GFR #### [address] [address] Calcium [Mass/Vol] 8.3 mg/dL Low 8.4-10.2 [facility] ([place] Comment on above: Performed By: #### C MP, LIPID, GFR #### [address] [address] Chloride [Moles/Vol] 101 mmol/L Normal 98-107 [facility] ([place] Comment on above: Performed By: #### C MP, LIPID, GFR #### [address] [address] CO2 [Moles/Vol] 27 mmol/L Normal 22-29 [facility] ([place] Comment on above: Performed By: #### C MP, LIPID, GFR #### [address] [address] Creatinine [Mass/Vol] 0.56 mg/dL Normal 0.55-1.02 [facility] ([place] Comment on above: Performed By: #### C MP, LIPID, GFR #### [address] [address] Electrolyte Balance 9.0 mEq/L Normal 4.0-15.0 [facility] [place] Comment on above: Performed By: #### C MP, LIPID, GFR #### [address] [address] Globulin 3.4 G/dL Normal [facility] ([place] Comment on above: Performed By: #### C MP, LIPID, GFR #### [address] [address] Glucose [Mass/Vol] 88 mg/dL Normal 70-105 [facility] ([place] Comment on above: Performed By: #### C MP, LIPID, GFR #### [address] [address] Potassium [Moles/Vol] 4.0 mmol/L Normal 3.5-5.1 [facility] ([place] Comment on above: Performed By: #### C MP, LIPID, GFR #### [address] [address] Sodium [Moles/Vol] 137 mmol/L Normal 136-145 [facility] ([place] Comment on above: Performed By: #### C MP, LIPID, GFR #### [address] [address] Total Protein 6.9 G/dL Normal 6.4-8.2 [facility] ([place] Comment on above: Performed By: #### C MP, LIPID, GFR #### [address] [address] Urea nitrogen [Mass/Vol] 11 mg/dL Normal 7-18 [facility] ([place] Comment on above: Performed By: #### C MP, LIPID, GFR #### [address] [address] LIPIDon 11-13-2023 Cholesterol [Mass/Vol] 217 mg/dL High 0-200 [facility] ([place] Comment on above: Result Comment: Chol esterol Reference Interval: Less than 200 Desirable 200-239 Borderline high risk 240 and above High risk Performed By: #### L IPID, VIDH, CMP, TSH, GFR #### [address] [address] Cholesterol in HDL [Mass/Vol] 59 mg/dL Normal 40-60 [facility] ([place] Comment on above: Performed By: #### L IPID, VIDH, CMP, TSH, GFR #### [address] [address] Cholesterol in LDL [Mass/Vol] 142 mg/dL High 0-130 [facility] ([place] Comment on above: Performed By: #### L IPID, VIDH, CMP, TSH, GFR #### [facility] [address] [place], [place] [address] Triglyceride [Mass/Vol] 80 mg/dL Normal 0-150 [facility] ([place] Comment on above: Result Comment: Trig lyceride Reference Interval: Less than 150 Normal 150-199 Borderline high risk 200-499 High risk 500 or higher Very high risk Performed By: #### L IPID, VIDH, CMP, TSH, GFR #### [address] [place], [place] [address] CNOVon 10-22-2023 CNOV Office Visit (UCWSTR ) RUBA BUSTAMANTE ([id number]) 1980 F Date Time Provider Department 10/22/23 6:00 PM REYMUNDO RUSSO [facility] During your visit today, we recorded the following information about you: Temperature Pulse Respiration Blood pressure 97.7 degrees 71/minute 20/minute 136/87 Weight 142.4 kg Reymundo Russo PA-C 10/22/2023 6:57 PM Signed This note was created using NoteWriter. Subjective Ruba Bustamante is a 43 year old female. HPI Presents with a chief complaint of cough and congestion over the past 2 weeks. She has had a sore throat as well. She initially had sinus pressure and congestion but that has improved. Initially had headaches the first week but that is gone as well. No vomiting or diarrhea. No home COVID test done. Denies sick contacts. No history of asthma. She is not a smoker. Review of Systems Constitutional: Negative. HENT: Positive for congestion, postnasal drip and sore throat. Negative for ear pain, sinus pressure and sinus pain. Respiratory: Positive for cough. Negative for shortness of breath and wheezing. Cardiovascular: Negative. Gastrointestinal: Negative. Genitourinary: Negative. Musculoskeletal: Negative. All other systems reviewed and are negative. PAST MEDICAL HISTORY Diagnosis Date PMH - PAST MEDICAL HISTORY OF costochondritis Transient hypertension of , antepartum Current Outpatient Medications Medication Sig Dispense Refill cholecalciferol (VITAMIN D-3) 5,000 unit tab 5,000 Units. cetirizine (ZYRTEC) 10 mg tablet Take 10 mg by mouth once daily. citalopram hydrobromide (CELEXA) 10 mg tablet Take 20 mg by mouth once daily. Fenofibrate 120 mg tab Take 145 mg by mouth once daily. rosuvastatin (CRESTOR) 10 mg tablet Take 20 mg by mouth once daily. predniSONE (DELTASONE) 20 mg tablet Take 2 tablets by mouth once daily for 5 days. 10 tablet 0 benzonatate (TESSALON PERLES) 100 mg capsule Take 2 capsules by mouth three times a day as needed. 30 capsule 0 albuterol HFA (PROAIR HFA) 90 mcg/actuation inhaler Inhale 2 Puffs as instructed every 6 hours as needed. 1 Each 0 fluticasone (FLONASE) 50 mcg/actuation nasal spray Use 2 Sprays in each nostril once daily. Rinse mouth after use. (Patient not taking: Reported on 10/22/2023) 1 Bottle 0 No current facility-administered medications for this visit. PAST SURGICAL HISTORY Procedure Laterality Date ADENOIDECTOMY PRIMARY Adenoidectomy DELIVERY ONLY 12/15/2008 , low cervical CHOLECYSTECTOMY Cholecystectomy PAST SURGICAL HISTORY OF 10/2011 Vein surgery TONSILLECTOMY PRIMARY/SECONDARY Tonsillectomy FAMILY HISTORY Problem Relation Age of Onset other (negative) Other No breast/fishing rod marker/colon cancer Social History Tobacco Use Smoking status: Never Smokeless tobacco: Never Substance Use Topics Alcohol use: No Drug use: No Objective BP 136/87 Pulse 71 Temp 36.5 ?C (97.7 ?F) Resp 20 Wt (!) 142.4 kg (314 lb) LMP 06/28/2012 SpO2 98% Physical Exam Vitals reviewed. Constitutional: Appearance: Normal appearance. HENT: Head: Normocephalic and atraumatic. Right Ear: Tympanic membrane, ear canal and external ear normal. Left Ear: Ear canal and external ear normal. Nose: Nose normal. Mouth/Throat: Mouth: Mucous membranes are moist. Pharynx: Posterior oropharyngeal erythema present. No oropharyngeal exudate. Cardiovascular: Rate and Rhythm: Regular rhythm. Heart sounds: Normal heart sounds. Pulmonary: Effort: Pulmonary effort is normal. Breath sounds: Normal breath sounds. Musculoskeletal: Cervical back: Neck supple. Skin: General: Skin is warm and dry. Findings: No rash. Neurological: Mental Status: She is alert. Assessment and Plan ASSESSMENT/PLAN: 1. Sore throat - ICD9: 462, ICD10: J02.9 (primary diagnosis) - Group A strep molecular testing negative - STREP A MOLECULAR (POC) 2. Bronchitis - ICD9: 490, ICD10: J40 Chest x-ray clear. I feel she does have a viral bronchitis. Will treat with prednisone, Tessalon and albuterol inhaler. Follow-up with PCP if not improving. Patient agreeable. - XR CHEST 2V FRONTAL/LAT Reymundo Russo PA-C Allergies As of Date: 10/22/2023 (No Known Allergies) Date Reviewed: 10/22/2023 Reviewed by: Katty Kumar LPN - Fully Assessed Reason for Visit: Cough [28] Cmt: Sore throat coming and going, headache, nasal congestion, runny nose x 2 weeks Primary Visit Diagnosis:Sore throat [J02.9] Other Visit Diagnosis:Bronchitis [J40] Order(s):STREP A MOLECULAR (POC) [0608476] Order #: [id number]. #:[id number] XR CHEST 2V FRONTAL/LAT [2885929] Order #: [id number] FUTURE predniSONE (DELTASONE) 20 mg tabletTake 2 tablets by mouth once daily for 5 days.Disp: 10 tabletRfl: 0 benzonatate (TESSALON PERLES) 100 mg capsuleTake 2 capsules by mouth three times a (more content not included)... Normal [facility] XR CHEST 2V FRONTAL/LATon XR CHEST 2V FRONTAL/LAT * * *Final Report* * * DATE OF EXAM: Oct 22 2023 6:32PM WOX 5291 - XR CHEST 2V FRONTAL/LAT / PROCEDURE REASON: Bronchitis * * * * Physician Interpretation * * * * EXAMINATION: CHEST RADIOGRAPH (2 VIEW FRONTAL and LATERAL) CLINICAL HISTORY: Bronchitis MQ: XC2_6 EXAM DATE/TIME: 10/22/2023 6:32 PM COMPARISON: No relevant prior studies available. RESULT: Lines, tubes, and devices: None. Lungs and pleura: No consolidation. No lung mass. No pleural effusion. No pneumothorax. Cardiomediastinal silhouette: Normal cardiomediastinal silhouette. Bones and soft tissues: Unremarkable. IMPRESSION: No acute radiographic abnormality. [employer] Operator: PSCB Transcribe Date/Time: Oct 22 2023 6:36P Dictated by : LEAH ADAM MD This examination was interpreted and the report reviewed and electronically signed by: LEAH ADAM MD on Oct 22 2023 6:36PM EST [id number] Normal [facility] XR Chest PA and Lateralon IMPRESSION: No acute radiographic abnormality. [employer] Operator: PSCB Transcribe Date/Time: Oct 22 2023 6:36P Dictated by : LEAH ADAM MD This examination was interpreted and the report reviewed and electronically signed by: LEAH ADAM MD on Oct 22 2023 6:36PM EST DIVISION OF RADIOLOGY * * *Final Report* * * DATE OF EXAM: Oct 22 2023 6:32PM WOX 5291 - XR CHEST 2V FRONTAL/LAT / PROCEDURE REASON: Bronchitis * * * * Physician Interpretation * * * * EXAMINATION: CHEST RADIOGRAPH (2 VIEW FRONTAL & LATERAL) CLINICAL HISTORY: Bronchitis MQ: XC2_6 EXAM DATE/TIME: 10/22/2023 6:32 PM COMPARISON: No relevant prior studies available. RESULT: Lines, tubes, and devices: None. Lungs and pleura: No consolidation. No lung mass. No pleural effusion. No pneumothorax. Cardiomediastinal silhouette: Normal cardiomediastinal silhouette. Bones and soft tissues: Unremarkable. DIVISION OF RADIOLOGY Provider, [facility] - 10/22/2023 * * *Final Report* * * DATE OF EXAM: Oct 22 2023 6:32PM WOX 5291 - XR CHEST 2V FRONTAL/LAT / PROCEDURE REASON: Bronchitis * * * * Physician Interpretation * * * * EXAMINATION: CHEST RADIOGRAPH (2 VIEW FRONTAL & LATERAL) CLINICAL HISTORY: Bronchitis MQ: XC2_6 EXAM DATE/TIME: 10/22/2023 6:32 PM COMPARISON: No relevant prior studies available. RESULT: Lines, tubes, and devices: None. Lungs and pleura: No consolidation. No lung mass. No pleural effusion. No pneumothorax. Cardiomediastinal silhouette: Normal cardiomediastinal silhouette. Bones and soft tissues: Unremarkable. IMPRESSION IMPRESSION: No acute radiographic abnormality. [employer] Operator: PSCB Transcribe Date/Time: Oct 22 2023 6:36P Dictated by : LEAH ADAM MD This examination was interpreted and the report reviewed and electronically signed by: LEAH ADAM MD on Oct 22 2023 6:36PM EST [facility] Radiology Study observation (narrative) [facility] XR Chest PA and LateralOrder ed By: Ccf Provider on 10-22-2023 [facility] .GFRon 04-29-2023 GFR 126 ml/min/1.73sqm Normal [facility] ([place]) Comment on above: Result Comment: GFR Population mean for , Non- Americans Ages 20-29 = 116 mL/min/1.73 sq.m. Ages 30-39 = 107 mL/min/1.73 sq.m. Ages 40-49 = 99 mL/min/1.73 sq.m. Ages 50-59 = 93 mL/min/1.73 sq.m. Ages 60-69 = 85 mL/min/1.73 sq.m. Ages 70+ = 75 mL/min/1.73 sq.m. Chronic Kidney Disease: Less than 60 mL/min/1.73 square meters End Stage Renal Disease: Less than 15 mL/min/1.73 square meters Performed By: #### L IPID, VIDH, CMP, TSH, GFR #### [place] [address] GFR Non- 104 ml/min/1.73sqm Normal [facility] ([place] Comment on above: Result Comment: GFR Population mean for , Non- Americans Ages 20-29 = 116 mL/min/1.73 sq.m. Ages 30-39 = 107 mL/min/1.73 sq.m. Ages 40-49 = 99 mL/min/1.73 sq.m. Ages 50-59 = 93 mL/min/1.73 sq.m. Ages 60-69 = 85 mL/min/1.73 sq.m. Ages 70+ = 75 mL/min/1.73 sq.m. Chronic Kidney Disease: Less than 60 mL/min/1.73 square meters End Stage Renal Disease: Less than 15 mL/min/1.73 square meters Performed By: #### L IPID, VIDH, CMP, TSH, GFR #### [address] [address] CMPon 04-29-2023 Albumin Level 3.9 G/dL Normal 3.5-5.0 [facility] ([place] Comment on above: Performed By: #### L IPID, VIDH, CMP, TSH, GFR #### [address] [address] Albumin/Globulin [Mass ratio] 1.3 {ratio} Normal 1.1-2.5 [facility] ([place] Comment on above: Performed By: #### L IPID, VIDH, CMP, TSH, GFR #### [address] [address] ALP [Catalytic activity/Vol] 56 U/L Normal 40-135 [facility] ([place] Comment on above: Performed By: #### L IPID, VIDH, CMP, TSH, GFR #### [address] [address] ALT [Catalytic activity/Vol] 26 U/L Normal 14-59 [facility] ([place] Comment on above: Performed By: #### L IPID, VIDH, CMP, TSH, GFR #### [address] [address] AST [Catalytic activity/Vol] 20 U/L Normal 10-40 [facility] ([place] Comment on above: Performed By: #### L IPID, VIDH, CMP, TSH, GFR #### [address] [address] Bili Total 0.4 mg/dL Normal 0.2-1.0 [facility] ([place] Comment on above: Result Comment: Use of this assay is not recommended for patients undergoing treatment with eltrombopag due to the potential for falsely elevated results. Performed By: #### L IPID, VIDH, CMP, TSH, GFR #### [address] [address] BUN/Creatinine Ratio 17 ratio Normal 7-27 [facility] ([place]) Comment on above: Performed By: #### L IPID, VIDH, CMP, TSH, GFR #### [address] [address] Calcium [Mass/Vol] 8.8 mg/dL Normal 8.4-10.2 [facility] ([place]) Comment on above: Performed By: #### L IPID, VIDH, CMP, TSH, GFR #### [place] [id number] Chloride [Moles/Vol] 103 mmol/L Normal 98-107 [facility] ([place] Comment on above: Performed By: #### L IPID, VIDH, CMP, TSH, GFR #### [place] [address] CO2 [Moles/Vol] 28 mmol/L Normal 22-29 [facility] ([place] Comment on above: Performed By: #### L IPID, VIDH, CMP, TSH, GFR #### [address] [address] Creatinine [Mass/Vol] 0.63 mg/dL Normal 0.55-1.02 [facility] ([place] Comment on above: Performed By: #### L IPID, VIDH, CMP, TSH, GFR #### [address] [address] Electrolyte Balance 8.0 mEq/L Normal 4.0-15.0 [facility] [place] Comment on above: Performed By: #### L IPID, VIDH, CMP, TSH, GFR #### [address] [address] Globulin 2.9 G/dL Normal [facility] ([place] Comment on above: Performed By: #### L IPID, VIDH, CMP, TSH, GFR #### [address] [address] Glucose [Mass/Vol] 95 mg/dL Normal 70-105 [facility] ([place] Comment on above: Performed By: #### L IPID, VIDH, CMP, TSH, GFR #### [address] [address] Potassium [Moles/Vol] 4.0 mmol/L Normal 3.5-5.1 [facility] ([place] Comment on above: Performed By: #### L IPID, VIDH, CMP, TSH, GFR #### [address] [address] Sodium [Moles/Vol] 139 mmol/L Normal 136-145 [facility] ([place] Comment on above: Performed By: #### L IPID, VIDH, CMP, TSH, GFR #### [address] [address] Total Protein 6.8 G/dL Normal 6.4-8.2 [facility] ([place] Comment on above: Performed By: #### L IPID, VIDH, CMP, TSH, GFR #### [address] [address] Urea nitrogen [Mass/Vol] 11 mg/dL Normal 7-18 [facility] ([place] Comment on above: Performed By: #### L IPID, VIDH, CMP, TSH, GFR #### [address] [address] LABORATORYOrdered By: SYSTEM SYSTEM on 04-29-2023 25-hydroxyvitamin D3 [Mass/Vol] 44.8 ng/mL Invalid Interpretation Code AO ADM SS Albumin BCP dye [Mass/Vol] 3.9 G/dL Invalid Interpretation Code 3.5 - 5.0 G/dL AO ADM SS Albumin/Globulin [Mass ratio] 1.3 {ratio} Invalid Interpretation Code 1.1 - 2.5 ratio AO ADM SS ALP [Catalytic activity/Vol] 56 U/L Invalid Interpretation Code 40 - 135 U/L AO ADM SS ALT With P-5'-P [Catalytic activity/Vol] 26 U/L Invalid Interpretation Code 14 - 59 U/L AO ADM SS AST With P-5'-P [Catalytic activity/Vol] 20 U/L Invalid Interpretation Code 10 - 40 U/L AO ADM SS Bilirubin [Mass/Vol] 0.4 mg/dL Invalid Interpretation Code 0.2 - 1.0 mg/dL AO ADM SS Calcium [Mass/Vol] 8.8 mg/dL Invalid Interpretation Code 8.4 - 10.2 mg/dL AO ADM SS Chloride [Moles/Vol] 103 mmol/L Invalid Interpretation Code 98 - 107 mmol/L AO ADM SS CO2 [Moles/Vol] 28 mmol/L Invalid Interpretation Code 22 - 29 mmol/L AO ADM SS Creatinine [Mass/Vol] 0.63 mg/dL Invalid Interpretation Code 0.55 - 1.02 mg/dL AO ADM SS Electrolyte Balance 8.0 mEq/L Invalid Interpretation Code 4.0 - 15.0 mEq/L AO ADM SS GFR/1.73 sq M.predicted among blacks MDRD (S/P/Bld) [Vol rate/Area] 126 ml/min/1.73sqm Invalid Interpretation Code AO Chemistry S GFR/1.73 sq M.predicted among non-blacks MDRD (S/P/Bld) [Vol rate/Area] 104 ml/min/1.73sqm Invalid Interpretation Code AO Chemistry S Globulin 2.9 G/dL Invalid Interpretation Code AO ADM SS Glucose [Mass/Vol] 95 mg/dL Invalid Interpretation Code 70 - 105 mg/dL AO ADM SS Potassium [Moles/Vol] 4.0 mmol/L Invalid Interpretation Code 3.5 - 5.1 mmol/L AO ADM SS Protein [Mass/Vol] 6.8 G/dL Invalid Interpretation Code 6.4 - 8.2 G/dL AO ADM SS Sodium [Moles/Vol] 139 mmol/L Invalid Interpretation Code 136 - 145 mmol/L AO ADM SS TSH Qn 1.33 m[IU]/L Invalid Interpretation Code 0.36 - 3.74 mcIU/mL AO ADM SS Urea nitrogen [Mass/Vol] 11 mg/dL Invalid Interpretation Code 7 - 18 mg/dL AO ADM SS Urea nitrogen/Creatinine [Mass ratio] 17 ratio Invalid Interpretation Code 7 - 27 ratio AO ADM SS LABORATORYOrdered By: Esther Arteaga on 04-29-2023 Cholesterol [Mass/Vol] 189 mg/dL Invalid Interpretation Code 0 - 200 mg/dL AO ADM SS Cholesterol in HDL [Mass/Vol] 47 mg/dL Invalid Interpretation Code 40 - 60 mg/dL AO ADM SS Cholesterol in LDL [Mass/Vol] 121 mg/dL Invalid Interpretation Code 0 - 130 mg/dL AO ADM SS Triglyceride [Mass/Vol] 105 mg/dL Invalid Interpretation Code 0 - 150 mg/dL AO ADM SS LIPIDon 04-29-2023 Cholesterol [Mass/Vol] 189 mg/dL Normal 0-200 [facility] ([place]) Comment on above: Result Comment: Chol esterol Reference Interval: Less than 200 Desirable 200-239 Borderline high risk 240 and above High risk Performed By: #### L IPID, VIDH, CMP, TSH, GFR #### [address] [address] Cholesterol in HDL [Mass/Vol] 47 mg/dL Normal 40-60 [facility] ([place] Comment on above: Performed By: #### L IPID, VIDH, CMP, TSH, GFR #### [address] [address] Cholesterol in LDL [Mass/Vol] 121 mg/dL Normal 0-130 [facility] ([place] Comment on above: Performed By: #### L IPID, VIDH, CMP, TSH, GFR #### [address] [address] Triglyceride [Mass/Vol] 105 mg/dL Normal 0-150 [facility] ([place] Comment on above: Result Comment: Trig lyceride Reference Interval: Less than 150 Normal 150-199 Borderline high risk 200-499 High risk 500 or higher Very high risk Performed By: #### L IPID, VIDH, CMP, TSH, GFR #### [address] [address] TSHon 04-29-2023 TSH Qn 1.33 m[IU]/L Normal 0.36-3.74 [facility] ([place] Comment on above: Performed By: #### L IPID, VIDH, CMP, TSH, GFR #### [address] [address] VIDHon 04-29-2023 Vit. D 25-Hydroxy 44.8 ng/mL Normal [facility] ([place] Comment on above: Result Comment: Inte rpretive Values Based on Total 25(OH) Vitamin D: Deficient <20 ng/mL Insufficient 20 - <30 ng/mL Sufficient 30-100 ng/mL Performed By: #### L IPID, VIDH, CMP, TSH, GFR #### [address] [address] [place] MAMMOGRAM SCREENING BILAT ERAL W/TOMOon 04-24-2023 [place] MAMMOGRAM SCREENING BILATERAL W/MIGUEL ORIGINAL FROM: [address] [address] PROCEDURE FOR: RUBA BUSTAMANTE [address] [place] [address] [place] [address] Home: PID#: [id number] Exam#: [id number] : 1980 Age: 43 TO: SOWMYA AGUILAR APRN [facility] [address] [address] Fax: NO FAX EXAMINATION: SCREENING DIGITAL BILATERAL MAMMOGRAM WITH TOMOSYNTHESIS, 04/24/2023 10:30 am TECHNIQUE: Screening mammography of the bilateral breasts was performed with tomosynthesis. 2D standard and 3D tomosynthesis combination imaging performed through both breasts in the MLO and CC projection. Computer aided detection was utilized in the interpretation of this exam. COMPARISON: 04/17/2022, 04/15/2021 HISTORY: Breast cancer screening FINDINGS: BREAST DENSITY: Predominantly Fatty There are no significant masses or calcifications. IMPRESSION: No mammographic evidence of malignancy. Continued screening with annual mammograms is recommended. BIRADS: MAMMOGRAM BI-RADS: 1: Negative RECALL: 1 year screening RECALL TYPE: mammo LETTER SENT: Normal BI-RADS 1 and 2 Interpreted by: Girish Malik MD Preliminary Report By: Girish Malik MD Electronically signed By Girish Malik MD Dictated Date: 04/24/2023 5:25:02 PM Prelim Date: 04/24/2023 5:33:30 PM Sign Date: 04/24/2023 5:33:30 PM Ordering Provider: SOWMYA AGUILAR Exercise Manager: GENET ROSE (R) (M) (CT) letter sent: Normal BI-RADS 1 and 2 Mammogram BI-RADS: 1 Negative Normal [facility] ([place]) .GFRon 12-05-2022 GFR Non- 122 ml/min/1.73sqm Normal [facility] ([place] Comment on above: Result Comment: GFR Population mean for , Non- Americans Ages 20-29 = 116 mL/min/1.73 sq.m. Ages 30-39 = 107 mL/min/1.73 sq.m. Ages 40-49 = 99 mL/min/1.73 sq.m. Ages 50-59 = 93 mL/min/1.73 sq.m. Ages 60-69 = 85 mL/min/1.73 sq.m. Ages 70+ = 75 mL/min/1.73 sq.m. Chronic Kidney Disease: Less than 60 mL/min/1.73 square meters End Stage Renal Disease: Less than 15 mL/min/1.73 square meters Performed By: #### G FR, LIPID, CMP #### Azeem [address] [address] GFR 148 ml/min/1.73sqm Normal [facility] ([place] Comment on above: Result Comment: GFR Population mean for , Non- Americans Ages 20-29 = 116 mL/min/1.73 sq.m. Ages 30-39 = 107 mL/min/1.73 sq.m. Ages 40-49 = 99 mL/min/1.73 sq.m. Ages 50-59 = 93 mL/min/1.73 sq.m. Ages 60-69 = 85 mL/min/1.73 sq.m. Ages 70+ = 75 mL/min/1.73 sq.m. Chronic Kidney Disease: Less than 60 mL/min/1.73 square meters End Stage Renal Disease: Less than 15 mL/min/1.73 square meters Performed By: #### G FR, LIPID, CMP #### [address] [address] CMPon 12-05-2022 Albumin Level 3.5 G/dL Normal 3.5-5.0 [facility] ([place] Comment on above: Performed By: #### G FR, LIPID, CMP #### [address] [address] Albumin/Globulin [Mass ratio] 1.1 {ratio} Normal 1.1-2.5 [facility] ([place] Comment on above: Performed By: #### G FR, LIPID, CMP #### [address] [address] ALP [Catalytic activity/Vol] 61 U/L Normal 40-135 [facility] ([place] Comment on above: Performed By: #### Lynette FR, LIPID, CMP #### [address] [address] ALT [Catalytic activity/Vol] 29 U/L Normal 14-59 [facility] ([place] Comment on above: Performed By: #### Lynette FR, LIPID, CMP #### [address] [address] AST [Catalytic activity/Vol] 25 U/L Normal 10-40 [facility] ([place] Comment on above: Performed By: #### Lynette FR, LIPID, CMP #### [address] [address] Bili Total 0.2 mg/dL Normal 0.2-1.0 [facility] ([place] Comment on above: Result Comment: Use of this assay is not recommended for patients undergoing treatment with eltrombopag due to the potential for falsely elevated results. Performed By: #### G FR, LIPID, CMP #### [address] [address] BUN/Creatinine Ratio 25 ratio Normal 7-27 [facility] ([place]) Comment on above: Performed By: #### Lynette FR, LIPID, CMP #### [address] [address] Calcium [Mass/Vol] 8.1 mg/dL Low 8.4-10.2 [facility] ([place] Comment on above: Performed By: #### G FR, LIPID, CMP #### [address] [address] Chloride [Moles/Vol] 103 mmol/L Normal 98-107 [facility] ([place] Comment on above: Performed By: #### G FR, LIPID, CMP #### [address] [address] CO2 [Moles/Vol] 30 mmol/L High 22-29 [facility] ([place] Comment on above: Performed By: #### G FR, LIPID, CMP #### [address] [address] Creatinine [Mass/Vol] 0.55 mg/dL Normal 0.55-1.02 [facility] ([place] Comment on above: Performed By: #### Lynette FR, LIPID, CMP #### [address] [address] Electrolyte Balance 8.0 mEq/L Normal 4.0-15.0 [facility] [place] Comment on above: Performed By: #### G FR, LIPID, CMP #### [address] [address] Globulin 3.2 G/dL Normal [facility] ([place] Comment on above: Performed By: #### G FR, LIPID, CMP #### [address] [address] Glucose [Mass/Vol] 95 mg/dL Normal 70-105 [facility] ([place] Comment on above: Performed By: #### G FR, LIPID, CMP #### [address] [address] Potassium [Moles/Vol] 4.2 mmol/L Normal 3.5-5.1 [facility] ([place] Comment on above: Performed By: #### G FR, LIPID, CMP #### [address] [address] Sodium [Moles/Vol] 141 mmol/L Normal 136-145 [facility] ([place] Comment on above: Performed By: #### G FR, LIPID, CMP #### [id number] [place], [place] [address] Total Protein 6.7 G/dL Normal 6.4-8.2 [facility] ([place] Comment on above: Performed By: #### G FR, LIPID, CMP #### [id number] [place], [place] [address] Urea nitrogen [Mass/Vol] 14 mg/dL Normal 7-18 [facility] ([place] Comment on above: Performed By: #### G FR, LIPID, CMP #### [id number] [place], [place] [address] LABORATORYOrdered By: SYSTEM SYSTEM on 12-05-2022 Albumin BCP dye [Mass/Vol] 3.5 G/dL Invalid Interpretation Code 3.5 - 5.0 G/dL AO ADM SS Albumin/Globulin [Mass ratio] 1.1 {ratio} Invalid Interpretation Code 1.1 - 2.5 ratio AO ADM SS ALP [Catalytic activity/Vol] 61 U/L Invalid Interpretation Code 40 - 135 U/L AO ADM SS ALT With P-5'-P [Catalytic activity/Vol] 29 U/L Invalid Interpretation Code 14 - 59 U/L AO ADM SS AST With P-5'-P [Catalytic activity/Vol] 25 U/L Invalid Interpretation Code 10 - 40 U/L AO ADM SS Bilirubin [Mass/Vol] 0.2 mg/dL Invalid Interpretation Code 0.2 - 1.0 mg/dL AO ADM SS Calcium [Mass/Vol] 8.1 mg/dL Invalid Interpretation Code 8.4 - 10.2 mg/dL AO ADM SS Chloride [Moles/Vol] 103 mmol/L Invalid Interpretation Code 98 - 107 mmol/L AO ADM SS CO2 [Moles/Vol] 30 mmol/L Invalid Interpretation Code 22 - 29 mmol/L AO ADM SS Creatinine [Mass/Vol] 0.55 mg/dL Invalid Interpretation Code 0.55 - 1.02 mg/dL AO ADM SS Electrolyte Balance 8.0 mEq/L Invalid Interpretation Code 4.0 - 15.0 mEq/L AO ADM SS GFR 148 ml/min/1.73sqm Invalid Interpretation Code AO Chemistry S GFR Non- 122 ml/min/1.73sqm Invalid Interpretation Code AO Chemistry S Globulin 3.2 G/dL Invalid Interpretation Code AO ADM SS Glucose [Mass/Vol] 95 mg/dL Invalid Interpretation Code 70 - 105 mg/dL AO ADM SS Potassium [Moles/Vol] 4.2 mmol/L Invalid Interpretation Code 3.5 - 5.1 mmol/L AO ADM SS Protein [Mass/Vol] 6.7 G/dL Invalid Interpretation Code 6.4 - 8.2 G/dL AO ADM SS Sodium [Moles/Vol] 141 mmol/L Invalid Interpretation Code 136 - 145 mmol/L AO ADM SS Urea nitrogen [Mass/Vol] 14 mg/dL Invalid Interpretation Code 7 - 18 mg/dL AO ADM SS Urea nitrogen/Creatinine [Mass ratio] 25 ratio Invalid Interpretation Code 7 - 27 ratio AO ADM SS LABORATORYOrdered By: Leonel Fields on 12-05-2022 Cholesterol [Mass/Vol] 174 mg/dL Invalid Interpretation Code 0 - 200 mg/dL AO ADM SS Cholesterol in HDL [Mass/Vol] 41 mg/dL Invalid Interpretation Code 40 - 60 mg/dL AO ADM SS Cholesterol in LDL [Mass/Vol] 116 mg/dL Invalid Interpretation Code 0 - 130 mg/dL AO ADM SS Triglyceride [Mass/Vol] 84 mg/dL Invalid Interpretation Code 0 - 150 mg/dL AO ADM SS LIPIDon 12-05-2022 Cholesterol [Mass/Vol] 174 mg/dL Normal 0-200 [facility] ([place] Comment on above: Result Comment: Chol esterol Reference Interval: Less than 200 Desirable 200-239 Borderline high risk 240 and above High risk Performed By: #### G FR, LIPID, CMP #### [address] [address] Cholesterol in HDL [Mass/Vol] 41 mg/dL Normal 40-60 [facility] ([place] Comment on above: Performed By: #### G FR, LIPID, CMP #### Aze[address] [place], [place] [address] Cholesterol in LDL [Mass/Vol] 116 mg/dL Normal 0-130 [facility] ([place] Comment on above: Performed By: #### G FR, LIPID, CMP #### [address] [place], [place] [address] Triglyceride [Mass/Vol] 84 mg/dL Normal 0-150 [facility] ([place] Comment on above: Result Comment: Trig lyceride Reference Interval: Less than 150 Normal 150-199 Borderline high risk 200-499 High risk 500 or higher Very high risk Performed By: #### G FR, LIPID, CMP #### [address] [place], [place] [address] LABORATORYOrdered By: Mita Valencia on 07-09-2022 Albumin BCP dye [Mass/Vol] 3.7 G/dL Invalid Interpretation Code 3.5 - 5.0 G/dL AO ADM SS Albumin/Globulin [Mass ratio] 1.1 {ratio} Invalid Interpretation Code 1.1 - 2.5 ratio AO ADM SS ALP [Catalytic activity/Vol] 93 U/L Invalid Interpretation Code 40 - 135 U/L AO ADM SS ALT With P-5'-P [Catalytic activity/Vol] 24 U/L Invalid Interpretation Code 14 - 59 U/L AO ADM SS AST With P-5'-P [Catalytic activity/Vol] 15 U/L Invalid Interpretation Code 10 - 40 U/L AO ADM SS Bilirubin [Mass/Vol] 0.4 mg/dL Invalid Interpretation Code 0.2 - 1.0 mg/dL AO ADM SS Calcium [Mass/Vol] 8.6 mg/dL Invalid Interpretation Code 8.4 - 10.2 mg/dL AO ADM SS Chloride [Moles/Vol] 103 mmol/L Invalid Interpretation Code 98 - 107 mmol/L AO ADM SS Cholesterol [Mass/Vol] 203 mg/dL Invalid Interpretation Code 0 - 200 mg/dL AO ADM SS Cholesterol in HDL [Mass/Vol] 47 mg/dL Invalid Interpretation Code 40 - 60 mg/dL AO ADM SS Cholesterol in LDL [Mass/Vol] 123 mg/dL Invalid Interpretation Code 0 - 130 mg/dL AO ADM SS CO2 [Moles/Vol] 30 mmol/L Invalid Interpretation Code 22 - 29 mmol/L AO ADM SS Creatinine [Mass/Vol] 0.54 mg/dL Invalid Interpretation Code 0.55 - 1.02 mg/dL AO ADM SS Electrolyte Balance 7.0 mEq/L Invalid Interpretation Code 4.0 - 15.0 mEq/L AO ADM SS Globulin 3.4 G/dL Invalid Interpretation Code AO ADM SS Glucose [Mass/Vol] 87 mg/dL Invalid Interpretation Code 70 - 105 mg/dL AO ADM SS Potassium [Moles/Vol] 4.4 mmol/L Invalid Interpretation Code 3.5 - 5.1 mmol/L AO ADM SS Protein [Mass/Vol] 7.1 G/dL Invalid Interpretation Code 6.4 - 8.2 G/dL AO ADM SS Sodium [Moles/Vol] 140 mmol/L Invalid Interpretation Code 136 - 145 mmol/L AO ADM SS Triglyceride [Mass/Vol] 163 mg/dL Invalid Interpretation Code 0 - 150 mg/dL AO ADM SS Urea nitrogen [Mass/Vol] 12 mg/dL Invalid Interpretation Code 7 - 18 mg/dL AO ADM SS Urea nitrogen/Creatinine [Mass ratio] 22 ratio Invalid Interpretation Code 7 - 27 ratio AO ADM SS LABORATORYOrdered By: Oxana Reid on 07-09-2022 Basophil, Absolute 0.0 103/mcL Invalid Interpretation Code 0.0 - 0.2 10^3/mcL AO Workflow SS Basophils/100 WBC (Bld) 0.4 % Invalid Interpretation Code 0.0 - 2.5 % AO Workflow SS Eosinophil, Absolute 0.1 103/mcL Invalid Interpretation Code 0.0 - 0.4 10^3/mcL AO Workflow SS Eosinophils/100 WBC (Bld) 0.8 % Invalid Interpretation Code 0.0 - 7.0 % AO Workflow SS Erythrocyte distribution width (RBC) [Ratio] 13.6 % Invalid Interpretation Code 11.5 - 14.5 % AO Workflow SS Hematocrit (Bld) [Volume fraction] 39.0 % Invalid Interpretation Code 37.0 - 47.0 % AO Workflow SS Hemoglobin (Bld) [Mass/Vol] 13.5 G/dL Invalid Interpretation Code 12.0 - 16.0 G/dL AO Workflow SS Lymphocyte, Absolute 2.2 103/mcL Invalid Interpretation Code 0.8 - 3.9 10^3/mcL AO Workflow SS Lymphocytes/100 WBC (Bld) 29.6 % Invalid Interpretation Code 10.0 - 50.0 % AO Workflow SS MCH (RBC) [Entitic mass] 29.3 pg Invalid Interpretation Code 27.0 - 31.2 pg AO Workflow SS MCHC 34.7 G/dL Invalid Interpretation Code 33.0 - 37.0 G/dL AO Workflow SS MCV (RBC) [Entitic vol] 84.3 fL Invalid Interpretation Code 80.0 - 94.0 fL AO Workflow SS Monocyte, Absolute 0.5 103/mcL Invalid Interpretation Code 0.2 - 1.0 10^3/mcL AO Workflow SS Monocytes/100 WBC (Bld) 7.0 % Invalid Interpretation Code 1.7 - 13.0 % AO Workflow SS Neutrophil, Absolute 4.6 103/mcL Invalid Interpretation Code 2.9 - 6.2 10^3/mcL AO Workflow SS Neutrophils/100 WBC (Bld) 62.2 % Invalid Interpretation Code 37.0 - 80.0 % AO Workflow SS Platelet mean volume (Bld) [Entitic vol] 7.9 fL Invalid Interpretation Code 7.4 - 10.4 fL AO Workflow SS Platelets (Bld) [#/Vol] 247 103/mcL Invalid Interpretation Code 130 - 400 10^3/mcL AO Workflow SS RBC (Bld) [#/Vol] 4.63 106/mcL Invalid Interpretation Code 4.20 - 5.40 10^6/mcL AO Workflow SS WBC (Bld) [#/Vol] 7.3 103/mcL Invalid Interpretation Code 4.6 - 10.8 10^3/mcL AO Workflow SS LABORATORYOrdered By: SYSTEM SYSTEM on 07-09-2022 GFR 152 ml/min/1.73sqm Invalid Interpretation Code AO Chemistry S GFR Non- 125 ml/min/1.73sqm Invalid Interpretation Code AO Chemistry S LABORATORYOrdered By: SYSTEM SYSTEM on 06-27-2022 25-hydroxyvitamin D3 [Mass/Vol] 31.7 ng/mL Invalid Interpretation Code AH ADM SS LABORATORYOrdered By: Leonel Fields on 01-14-2022 ABO/Rh Interp Positive Invalid Interpretation Code AO BB SS Antibody Screen Gel Negative [facility] (01/14/22 9:56 AM) Invalid Interpretation Code AO BB SS LABORATORYOrdered By: Cathryn Tam on 01-14-2022 Albumin BCP dye [Mass/Vol] 4.0 G/dL Invalid Interpretation Code 3.5 - 5.0 G/dL AO ADM SS Albumin/Globulin [Mass ratio] 1.1 {ratio} Invalid Interpretation Code 1.1 - 2.5 ratio AO ADM SS ALP [Catalytic activity/Vol] 83 U/L Invalid Interpretation Code 40 - 135 U/L AO ADM SS ALT With P-5'-P [Catalytic activity/Vol] 27 U/L Invalid Interpretation Code 14 - 59 U/L AO ADM SS AST With P-5'-P [Catalytic activity/Vol] 15 U/L Invalid Interpretation Code 10 - 40 U/L AO ADM SS Bili Indirect 0.4 mg/dL Invalid Interpretation Code AO Chemistry S Bilirubin [Mass/Vol] 0.5 mg/dL Invalid Interpretation Code 0.2 - 1.0 mg/dL AO ADM SS Bilirubin.direct [Mass/Vol] 0.1 mg/dL Invalid Interpretation Code 0.0 - 0.2 mg/dL AO ADM SS Calcium [Mass/Vol] 9.2 mg/dL Invalid Interpretation Code 8.4 - 10.2 mg/dL AO ADM SS Chloride [Moles/Vol] 103 mmol/L Invalid Interpretation Code 98 - 107 mmol/L AO ADM SS Cholesterol [Mass/Vol] 174 mg/dL Invalid Interpretation Code 0 - 200 mg/dL AO ADM SS Cholesterol in HDL [Mass/Vol] 41 mg/dL Invalid Interpretation Code 40 - 60 mg/dL AO ADM SS Cholesterol in LDL [Mass/Vol] 117 mg/dL Invalid Interpretation Code 0 - 130 mg/dL AO ADM SS CO2 [Moles/Vol] 28 mmol/L Invalid Interpretation Code 22 - 29 mmol/L AO ADM SS Creatinine [Mass/Vol] 0.74 mg/dL Invalid Interpretation Code 0.55 - 1.02 mg/dL AO ADM SS Electrolyte Balance 9.0 mEq/L Invalid Interpretation Code 4.0 - 15.0 mEq/L AO ADM SS Globulin 3.5 G/dL Invalid Interpretation Code AO ADM SS Glucose [Mass/Vol] 89 mg/dL Invalid Interpretation Code 70 - 105 mg/dL AO ADM SS Potassium [Moles/Vol] 4.1 mmol/L Invalid Interpretation Code 3.5 - 5.1 mmol/L AO ADM SS Protein [Mass/Vol] 7.5 G/dL Invalid Interpretation Code 6.4 - 8.2 G/dL AO ADM SS Sodium [Moles/Vol] 140 mmol/L Invalid Interpretation Code 136 - 145 mmol/L AO ADM SS Triglyceride [Mass/Vol] 82 mg/dL Invalid Interpretation Code 0 - 150 mg/dL AO ADM SS Urea nitrogen [Mass/Vol] 11 mg/dL Invalid Interpretation Code 7 - 18 mg/dL AO ADM SS Urea nitrogen/Creatinine [Mass ratio] 15 ratio Invalid Interpretation Code 7 - 27 ratio AO ADM SS LABORATORYOrdered By: Kimberlyn Smith on 01-14-2022 Basophil, Absolute 0.00 103/mcL Invalid Interpretation Code 0.00 - 0.19 10^3/mcL AO Auto Heme SS Basophils/100 WBC (Bld) 0.5 % Invalid Interpretation Code 0.0 - 2.5 % AO Auto Heme SS Eosinophil, Absolute 0.00 103/mcL Invalid Interpretation Code 0.00 - 0.40 10^3/mcL AO Auto Heme SS Eosinophils/100 WBC (Bld) 0.2 % Invalid Interpretation Code 0.0 - 7.0 % AO Auto Heme SS Erythrocyte distribution width (RBC) [Ratio] 13.5 % Invalid Interpretation Code 11.5 - 14.5 % AO Auto Heme SS Hematocrit (Bld) [Volume fraction] 39.0 % Invalid Interpretation Code 37.0 - 47.0 % AO Auto Heme SS Hemoglobin (Bld) [Mass/Vol] 13.5 G/dL Invalid Interpretation Code 12.0 - 16.0 G/dL AO Auto Heme SS Lymphocyte, Absolute 1.60 103/mcL Invalid Interpretation Code 0.77 - 3.85 10^3/mcL AO Auto Heme SS Lymphocytes/100 WBC (Bld) 25.1 % Invalid Interpretation Code 10.0 - 50.0 % AO Auto Heme SS MCH (RBC) [Entitic mass] 29.5 pg Invalid Interpretation Code 27.0 - 31.2 pg AO Auto Heme SS MCHC (RBC) [Mass/Vol] 34.7 G/dL Invalid Interpretation Code 33.0 - 37.0 G/dL AO Auto Heme SS MCV (RBC) [Entitic vol] 85.0 fL Invalid Interpretation Code 80.0 - 94.0 fL AO Auto Heme SS Monocyte, Absolute 0.30 103/mcL Invalid Interpretation Code 0.15 - 1.00 10^3/mcL AO Auto Heme SS Monocytes/100 WBC (Bld) 5.4 % Invalid Interpretation Code 1.7 - 13.0 % AO Auto Heme SS Neutrophil, Absolute 4.50 103/mcL Invalid Interpretation Code 2.85 - 6.16 10^3/mcL AO Auto Heme SS Neutrophils/100 WBC (Bld) 68.8 % Invalid Interpretation Code 37.0 - 80.0 % AO Auto Heme SS Platelet mean volume (Bld) [Entitic vol] 8.8 fL Invalid Interpretation Code 7.4 - 10.4 fL AO Auto Heme SS Platelets (Bld) [#/Vol] 277 103/mcL Invalid Interpretation Code 130 - 400 10^3/mcL AO Auto Heme SS RBC (Bld) [#/Vol] 4.59 106/mcL Invalid Interpretation Code 4.20 - 5.40 10^6/mcL AO Auto Heme SS WBC (Bld) [#/Vol] 6.50 103/mcL Invalid Interpretation Code 4.60 - 10.80 10^3/mcL AO Auto Heme SS LABORATORYOrdered By: SYSTEM SYSTEM on 01-14-2022 GFR 106 ml/min/1.73sqm Invalid Interpretation Code AO Chemistry S GFR Non- 87 ml/min/1.73sqm Invalid Interpretation Code AO Chemistry S LABORATORYOrdered By: SYSTEM SYSTEM on 10-14-2021 Progesterone [Mass/Vol] 0.4 ng/mL Invalid Interpretation Code AH ADM SS Prolactin [Mass/Vol] 12.8 ng/mL Invalid Interpretation Code 2.0 - 30.0 ng/mL AH ADM SS LABORATORYOrdered By: SYSTEM SYSTEM on 09-30-2021 Progesterone [Mass/Vol] 0.3 ng/mL Invalid Interpretation Code ADM SS Vital Signs Date Time Vital Sign Value Performing Clinician Faci lity 01-14-2022 09:14-0400 Body height 162.6 cm GIRISH FERNANDEZ MD [facility] 01-14-2022 09:14-0400 Body weight 129.8 kg GIRISH FERNANDEZ MD [facility] 01-14-2022 09:14-0400 Body weight 49.09 kg/m2 GIRISH FERNANDEZ MD [facility] 01-14-2022 09:14-0400 diastolic 82 mm[Hg] GIRISH FERNANDEZ MD [facility] 01-14-2022 09:14-0400 systolic 148 mm[Hg] GIRISH FERNANDEZ MD [facility] Encounters Encounter Date Encounter Type Care Provider Facility Start: 07-13-2025 Encounter for genera l adult medical examination without abnormal findings Marli Pino NP [facility] Start: 07-13-2025 ambulatory Marli Pino NP Fa cility:[facility] Start: 05-17-2025 End: 05-17-2025 ambulatory Marli Pino [facility] Work Phone: -[facility] Start: 05-17-2025 End: 05-17-[address] Girish Fernandez MD [facility] Work Phone: Start: 05-17-2025 End: 05-17-2025 ambulatory Marli Pino NP Facility:[facility] Start: 10-18-2024 Encounter for genera l adult medical examination without abnormal findings Marli Pino NP [facility] Start: 10-17-2024 ambulatory Marli Pino NP Fa cility:[facility] Start: 10-17-2024 End: 10-17-2024 ambulatory Marli Pino NP Facility:[facility] Start: 09-21-2024 End: 09-21-2024 ambulatory Marli Pino NP Facility:[facility] Start: 11-13-2023 End: 11-14-2023 ambulatory SOWMYA AGUILAR 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 Facility:[facility] Start: 10-22-2023 End: 10-22-2023 ambulatory REYMUNDO RUSSO Facility:[facility] Start: 10-22-2023 End: 10-22-2023 Subsequent hospital visit by physician [facility] Work Phone: Radiology Comment on above: Bronchitis [J40] Start: 04-29-2023 End: 04-30-2023 ambulatory SOWMYA JEFF 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 Facility:[facility] Start: 04-29-2023 End: 04-29-2023 Patient encounter procedure SOWMYA AGUILAR 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 [facility] Start: 04-24-2023 End: 04-25-2023 ambulatory SOWMYA AGUILAR 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 Facility:[facility] Start: 04-24-2023 End: 04-24-2023 Patient encounter procedure SOWMYA AGUILAR 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 [facility] Start: 12-05-2022 End: 12-06-2022 ambulatory SOWMYA AGUILAR 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 Facility:[facility] Start: 12-05-2022 End: 12-05-2022 Patient encounter procedure SOWMYA AGUILAR 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 [facility] Start: 07-09-2022 End: 07-09-2022 Patient encounter procedure SOWMYA AGUILAR 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 [facility] Start: 06-27-2022 End: 06-27-2022 Patient encounter procedure SOWMYA AGUILAR 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 [facility] Start: 04-17-2022 End: 04-17-2022 Patient encounter procedure SOWMYA AGUILAR 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 [facility] Start: 01-14-2022 End: 01-14-2022 Admission to establishment GIRISH FERNANDEZ MD [facility] Start: 01-13-2022 End: 01-13-2022 Patient encounter procedure GIRISH FERNANDEZ MD [facility] Start: 10-14-2021 End: 10-14-2021 Patient encounter procedure GIRISH FERNANDEZ MD [facility] Start: 09-30-2021 End: 09-30-2021 Patient encounter procedure GIRISH FERNANDEZ MD [facility] Start: 09-11-2021 End: 09-11-2021 Patient encounter procedure GIRISH FERNANDEZ MD [facility] Procedures Date Procedure Procedure Detail Performing Clinician Start: 05-17-2025 Screening mammography E rula Pino BIT TAPPER-C Work Phone: Start: 10-22-2023 Radiologic exam ches t 2 views Reymundo Russo PA-C Work Phone: Start: 01-16-2022 Laparoscopic-assiste d vaginal hysterectomy SOWMYA AVITIATUSHAR 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 Start: 07-08-2021 Dilation and curettage GIRISH FERNANDEZ MD Comment on above: hysteroscpoy with D/ C and Novasure Ablation Start: 07-08-2021 Laparoscopic salpingo-oophorectomy GIRISH FERNANDEZ MD Comment on above: laparoscopic right o ophorectomy and bilateral salpingectomy Start: 03-05-2018 Mammogram - symptomatic GIRISH FERNANDEZ MD Comment on above: benign Start: 03-05-2018 Ultrasonography of b reast and axilla GIRISH FERNANDEZ MD Comment on above: wnl-AOH Start: 12-15-2008 section GIRISH FERNANDEZ MD Cholecystectomy GIRISH FERNANDEZ MD Comment on above: Dr. Hopkins Tonsillectomy GIRISH FERNANDEZ MD Varicose vein ligati on and stripping GIRISH FERNANDEZ MD Comment on above: Dr. Woodward Plan of Treatment Date Care Activity Detail Author Start: 07-11-2032 Urine microalbumin profile DTa P,Tdap,Td Vaccine (2 - Td or Tdap) [facility] Start: 07-03-2024 Covid-19 Vaccine ( season) Covid-19 Vaccine ( season) [facility] Start: 07-03-2024 Influenza vaccination Influenza Vacc ine (#1) [facility] Start: 2022 Screening for malign ant neoplasm of breast Mammogram Screening [facility] Start: 07-23-2015 Screening for malign ant neoplasm of cervix Cervical Cancer Screening [facility] Start: 2001 Hepatitis B Vaccine (1 of 3 - 19+ 3-dose series) Hepatitis B Vaccine (1 of 3 - 19+ 3-dose series) [facility] Start: 02-10-2000 Anxiety Screening Anxiety Screening [facility] Start: 02-10-2000 Depression Screening Depression Scre ening [facility] Start: 02-10-2000 Hepatitis C screening Hepatitis C Sc shananing [facility] Start: 02-10-2000 HIV screening HIV Screening [facility] Immunizations Immunization Date Immunization Notes Care Provider Fa jesity 07-11-2022 tetanus toxoid, redu anita diphtheria toxoid, and acellular pertussis vaccine, adsorbed; Translations: [Boostrix (Tdap)] SOWMYA AGUILAR 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 2011 Unknown [id number] 1982 Unknown [id number] 1982 Unknown [id number] 627 1982 Unknown [id number] 627 1982 Unknown [id number] 627 Unknown [id number] 462 Unknown [id number]. 462 Unknown [id number] [id number]. 462 Unknown [id number] [id number]. 462 Unknown [id number] 462 Unknown [id number] 462 Social History Date Type Detail Facility Start: 10-26-2020 End: 02-08-2021 Never smoked tobacco (finding) [facility] Assigned At [facility] Start: 06-25-2011 Tobacco use and exposure Smokeless tobacco non-user [facility] Start: 10-22-2023 Alcoholic beverage intake Current non-drinker of alcohol (finding) [facility] Start: 02-08-2021 End: 10-22-2023 History of Social function [facility] Start: 02-08-2021 End: 10-22-2023 Tobacco use panel [facility] National Score (1-10 0), lower number is lower risk Not on file [facility] Start: 1980 Sex assigned at Not on file [facility] Start: 1980 Sex Assigned At Female [facility] Clinical Notes 10-22-2023 LaboratoryLaboratoryLaboratoryLaboratoryRadiologyLaboratoryRadiologyLaboratoryRa diologyRadiologyLaboratory Note Date & Type Note Facility 10-22-2023 Note HNO ID: [id number] Author: Reymundo Russo PA-C Service: ? Author Type: Physician Sample Worker Type: Progress Notes Filed: 10/22/2023 6:57 PM Note Text: This note was created using Nualightriter. Subjective Ruba Bustamante is a 43 year old female. HPI Presents with a chief complaint of cough and congestion over the past 2 weeks. She has had a sore throat as well. She initially had sinus pressure and congestion but that has improved. Initially had headaches the first week but that is gone as well. No vomiting or diarrhea. No home COVID test done. Denies sick contacts. No history of asthma. She is not a smoker. Review of Systems Constitutional: Negative. HENT: Positive for congestion, postnasal drip and sore throat. Negative for ear pain, sinus pressure and sinus pain. Respiratory: Positive for cough. Negative for shortness of breath and wheezing. Cardiovascular: Negative. Gastrointestinal: Negative. Genitourinary: Negative. Musculoskeletal: Negative. All other systems reviewed and are negative. PAST MEDICAL HISTORY Diagnosis Date PMH - PAST MEDICAL HISTORY OF costochondritis Transient hypertension of , antepartum Current Outpatient Medications Medication Sig Dispense Refill cholecalciferol (VITAMIN D-3) 5,000 unit tab 5,000 Units. cetirizine (ZYRTEC) 10 mg tablet Take 10 mg by mouth once daily. citalopram hydrobromide (CELEXA) 10 mg tablet Take 20 mg by mouth once daily. Fenofibrate 120 mg tab Take 145 mg by mouth once daily. rosuvastatin (CRESTOR) 10 mg tablet Take 20 mg by mouth once daily. predniSONE (DELTASONE) 20 mg tablet Take 2 tablets by mouth once daily for 5 days. 10 tablet 0 benzonatate (TESSALON PERLES) 100 mg capsule Take 2 capsules by mouth three times a day as needed. 30 capsule 0 albuterol HFA (PROAIR HFA) 90 mcg/actuation inhaler Inhale 2 Puffs as instructed every 6 hours as needed. 1 Each 0 fluticasone (FLONASE) 50 mcg/actuation nasal spray Use 2 Sprays in each nostril once daily. Rinse mouth after use. (Patient not taking: Reported on 10/22/2023) 1 Bottle 0 No current facility-administered medications for this visit. PAST SURGICAL HISTORY Procedure Laterality Date ADENOIDECTOMY PRIMARY Adenoidectomy DELIVERY ONLY 12/15/2008 , low cervical CHOLECYSTECTOMY Cholecystectomy PAST SURGICAL HISTORY OF 10/2011 Vein surgery TONSILLECTOMY PRIMARY/SECONDARY Tonsillectomy FAMILY HISTORY Problem Relation Age of Onset other (negative) Other No breast/fishing rod marker/colon cancer Social History Tobacco Use Smoking status: Never Smokeless tobacco: Never Substance Use Topics Alcohol use: No Drug use: No Objective BP 136/87 Pulse 71 Temp 36.5 ?C (97.7 ?F) Resp 20 Wt (!) 142.4 kg (314 lb) LMP 06/28/2012 SpO2 98% Physical Exam Vitals reviewed. Constitutional: Appearance: Normal appearance. HENT: Head: Normocephalic and atraumatic. Right Ear: Tympanic membrane, ear canal and external ear normal. Left Ear: Ear canal and external ear normal. Nose: Nose normal. Mouth/Throat: Mouth: Mucous membranes are moist. Pharynx: Posterior oropharyngeal erythema present. No oropharyngeal exudate. Cardiovascular: Rate and Rhythm: Regular rhythm. Heart sounds: Normal heart sounds. Pulmonary: Effort: Pulmonary effort is normal. Breath sounds: Normal breath sounds. Musculoskeletal: Cervical back: Neck supple. Skin: General: Skin is warm and dry. Findings: No rash. Neurological: Mental Status: She is alert. Assessment and Plan ASSESSMENT/PLAN: 1. Sore throat - ICD9: 462, ICD10: J02.9 (primary diagnosis) - Group A strep molecular testing negative - STREP A MOLECULAR (POC) 2. Bronchitis - ICD9: 490, ICD10: J40 Chest x-ray clear. I feel she does have a viral bronchitis. Will treat with prednisone, Tessalon and albuterol inhaler. Follow-up with PCP if not improving. Patient agreeable. - XR CHEST 2V FRONTAL/LAT Reymundo Russo PA-C [facility] 10-22-2023 Note HNO ID: [id number] Author: Beryl Alberto RT(R) Service: ? Author Type: Income Tax Expert Type: Progress Notes Filed: 10/22/2023 6:31 PM Note Text: Radiology Service Progress Note PATIENT NAME: Ruba Bustamante DATE OF SERVICE: October 22, 2023 TIME: 6:24 PM PATIENT IDENTITY VERIFICATION COMPLETED USING TWO (2) IDENTIFIERS: Name and Date of confirmed by patient verbally. FALL SCREENING: Has the patient had 2 falls in the last year or 1 fall with injury or currently using an Ambulatory Assistive Device (Walker, Cane, Wheelchair, Crutches, etc.)? No PATIENT GENDER DATA: Female. status: : No status: NO. PATIENT RELEVANT IMPLANT DATA REVIEWED: Yes RADIOLOGY DEPARTMENT: General X-ray: Exam(s) Completed: Chest X-Ray PERIPHERAL IV DATA: Not applicable SIGNED BY: Beryl Alberto, RT(R) October 22, 2023 6:24 PM [facility] Evaluation + Plan note Future Appointments Appointment Date:09/30/2021 09:45:00 AM Scheduled Provider:GIRISH FERNANDEZ MD Location: [facility] Appointment Type: OV Appointment Date:10/10/2021 09:30:00 AM Scheduled Provider:GIRISH FERNANDEZ MD Location:[facility] Appointment Type: OV Appointment Date:02/07/2022 10:00:00 AM Scheduled Provider:SOWMYA AGUILAR Location:[facility] Appointment Type: Wellness Annual Future Scheduled TestsHepatic Function Panel 09/06/21Thyroid Stimulating Hormone 30/21Lipid Profile 09/06/21 [facility] Evaluation + Plan note Future Appointments Appointment Date:02/07/2022 10:00:00 AM Scheduled Provider:SOWMYA AGUILAR Location:[facility] [place] Appointment Type: Wellness Annual Future Scheduled TestsHepatic Function Panel 09/06/21Thyroid Stimulating Hormone 30/21Lipid Profile 09/06/21 [facility] Evaluation + Plan note Future Appointments Appointment Date:01/23/2022 09:30:00 AM Scheduled Provider:GIRISH FERNANDEZ MD Location:[facility] Appointment Type: OV Appointment Date:02/07/2022 10:00:00 AM Scheduled Provider:SOWMYA AGUILAR Location:[facility] [place] Appointment Type: Wellness Annual Future Scheduled TestsHepatic Function Panel 09/06/21Thyroid Stimulating Hormone 730/21Lipid Profile 09/06/21 [facility] Evaluation + Plan note Future Appointments Appointment Date:07/11/2022 10:00:00 AM Scheduled Provider:SOWMYA AGUILAR Location:[facility] Appointment Type:PC OV Follow Up Appointment Date:08/28/2022 10:00:00 AM Scheduled Provider:GIRISH FERNANDEZ MD Location: [facility] Appointment Type: OV Annual Exam Future Scheduled TestsHepatic Function Panel 09/06/21Thyroid Stimulating Hormone 05/31/21Complete Blood Count 04/04/22Lipid Profile 04/04/22Lipid Profile 09/06/21Vitamin D Level 07/05/22Complete Metabolic Panel 04/04/22MA Mammo Screening Bilateral w/ Miguel 02/27/22 [facility] Evaluation + Plan note Future Appointments Appointment Date:07/11/2022 10:00:00 AM Scheduled Provider:SOWMYA AGUILAR Location:[facility] Appointment Type:PC OV Follow Up Appointment Date:08/28/2022 10:00:00 AM Scheduled Provider:GIRISH FERNANDEZ MD Location:[facility] Appointment Type: OV Annual Exam Future Scheduled TestsHepatic Function Panel 09/06/21Complete Blood Count 04/04/22Lipid Profile 04/04/22Lipid Profile 09/06/21Complete Metabolic Panel 04/04/22MA Mammo Screening Bilateral w/ Miguel 02/27/22 [facility] Evaluation + Plan note Future Appointments Appointment Date:07/11/2022 10:00:00 AM Scheduled Provider:SOWMYA AGUILAR Location:[facility] Appointment Type:PC OV Follow Up Appointment Date:08/28/2022 10:00:00 AM Scheduled Provider:GIRISH FERNANDEZ MD Location:[facility] Appointment Type: OV Annual Exam Future Scheduled TestsHepatic Function Panel 09/06/21Lipid Profile 09/06/21MA Mammo Screening Bilateral w/ Miguel 02/27/22 [facility] Evaluation + Plan note Future Appointments Appointment Date:12/12/2022 09:30:00 AM Scheduled Provider:SOWMYA AGUILAR Location:[facility] Appointment Type:PC OV Follow Up Future Scheduled TestsMA Mammo Screening Bilateral w/ Miguel 02/27/22 [facility] Evaluation + Plan note Future Appointments Appointment Date:05/11/2023 11:00:00 AM Scheduled Provider:SOWMYA AGUILAR Location:[facility] Appointment Type:PC OV Follow Up Appointment Date:09/07/2023 09:30:00 AM Scheduled Provider:GIRISH FERNANDEZ MD Location: [facility] Appointment Type: OV Annual Exam Future Scheduled TestsThyroid Stimulating Hormone 12/12/22Lipid Profile 06/11/23Vitamin D Level 06/11/23Complete Metabolic Panel 06/11/23 [facility] Evaluation + Plan note Future Appointments Appointment Date:05/11/2023 11:00:00 AM Scheduled Provider:SOWMYA AGUILAR Location:[facility] Appointment Type:PC OV Follow Up Appointment Date:09/07/2023 09:30:00 AM Scheduled Provider:GIRISH FERNANDEZ MD Location:[facility] Appointment Type: OV Annual Exam [facility] Evaluation note Diagnosis Bronchitis Bronchitis, not specified as acute or chronic documented in this encounter [facility] noteNo assessment information availableWOhio[facility] Work Phone: Hospital course Narrative No data available for this section [facility] Hospital Discharge instructions No data available for this section [facility] Progress note No data available for this section [facility] Reason for referral (narrative)No reason for referral information availableWOhioHealth [facility] Hospital Work Phone: Summary Purpose Family History No Family History Records FoundNo Family History Records FoundNo Family History Records Found Advance Directives No Advanced Directives Records FoundNo Advanced Directives Records FoundNo Advanced Directives Records Found Chief Complaint and Reason for Visit Chief Complaint Admit Date SCREENING May 17, 2025 11:5 7am Additional Source Comments Care Team (unrecognized sect ion and content) Team Status: Active Member Role/Relationship Status Dates Marli Pino BIT TAPPER, BIT TAPPER-C Primary Care Provider Activ e Team Status: Inactive Member Role/Relationship Status Dates Marli Pino BIT TAPPER, BIT TAPPER-C Primary Care Provider Activ e Start: May 17, 2025 End: May 17, 2025 Dr. Girish Fernandez MD Attending Provider Active Start: May 17, 2025 End: May 17, 2025 Dr. Girish Fernandez MD Referring Provider Active Start: May 17, 2025 End: May 17, 2025 Care Team (unrecognized sect ion and content) Care Team Personnel Name: SOWMYA AGUILAR Position: P4 Advanced Practice Nurse Member Role: Primary Care Physician Address: Address: [address] [place] [address] Care Team Related Persons Name: CHANDANA BUSTAMANTE Address: Home [address] [place] [address] [address] [place] [phone] Care Team Personnel Name: SOWMYA AGUILAR Position: P4 Advanced Practice Nurse Med Service: Active Provider Member Role: Primary Care Physician Address: Address: [address] [place] [address] Care Team Related Persons Name: CHANDANA BUSTAMANTE Address: Home [address] [place] [address] [address] [place] [phone] Care Team Personnel Name: SOWMYA AGUILAR Position: P4 Advanced Practice Nurse Member Role: Primary Care Physician Address: Address: [address] [place] [address] Care Team Related Persons Name: CHANDANA BUSTAMANTE Address: Home [address] [place] [address] [address] [place] [phone] INFORMATION SOURCE (unrecogn ized section and content) DATE CREATED AUTHOR 10/24/2023 [facility] DATE CREATED AUTHOR AUTHOR'S ORGANIZ ATION 11/15/2023 [facility] DATE CREATED AUTHOR AUTHOR'S BALJIT ATION 07/15/2025 [facility] Source Comments (unrecognize d section and content) In the event this informatio n is protected by the Federal Confidentiality of Alcohol and Drug Abuse Patient Records regulations: The Federal rules restrict any use of the information to criminally investigate or prosecute any alcohol or drug abuse patient.[facility] Goals (unrecognized section and content) Goals may be documented in a n alternate section FOR RECORDS PERTAINING TO PATIENTS WHO ARE OR HAVE BEEN ENROLLED IN A CHEMICAL DEPENDENCY/SUBSTANCEABUSE PROGRAM, SOME INFORMATION MAY BE OMITTED. This clinical summary was aggregated from multiple sources. Caution should be exercised in using it in the provision of clinical care. This summary normalizes information from multiple sources, and as a consequence, information in this document may materially change the coding, format and clinical context of patient data. In addition, data may be omitted in some cases. CLINICAL DECISIONS SHOULD BE BASED ON THE PRIMARY CLINICAL RECORDS. [email or web address] provides no warranty or guarantee of the accuracy or completeness of information in this document.
== END | disposition home or self-care (01) ==
LOC: LAB 10:26
PROVIDERS: PCP Registered Nurse; Referring Provider Registered Nurse; Visit Provider Registered Nurse
DX: Z00.00 Encounter for general adult medical examination without abnormal findings (principal); E78.2 Mixed hyperlipidemia; D64.9 Anemia, unspecified; E55.9 Vitamin D deficiency, unspecified; Z13.1 Encounter for screening for diabetes mellitus
CPT/HCPCS: 36415; 80053; 80061; 82306; 83036; 85027